=== PATIENT | female | born 1955 | race Caucasian/White ===

== ENCOUNTER → 2016-08-27 | Outpatient (CLI) | payer OTHER ==
[~2016-08-27] MED LIST: GADOBUTROL 10 ML VIAL IVP ONE
--- NOTE | 2016-08-28 10:32 | MR ---
MRI Cervical Spine Without and With Contrast History: History of metastatic breast cancer. Neck pain. Decreased range of motion. Comparison: Bone scan January 2016. MRI August 2012. Technique: MRI was performed of the cervical spine using a 1.5 Chantelle MRI system. Sagittal and axial i maging was obtained with standard imaging sequences. Images were obtained pre- and post intravenous c ontrast, 5 mL Gadavist. Findings: There is heterogeneous bone marrow throughout the cervical and upper thoracic spine indicat ing osseous metastatic disease. Dominant lesion in the C7 vertebral body to the left is more predomin ant. No evidence for compression fracture. Degenerative endplate change is seen at C5-C6 and C6-C7 wi th disk desiccation and disk height narrowing. No significant spondylolisthesis. Cervical spinal cord is normal in size and signal intensity. No evidence for abnormal enhancement of the cervical spine. C2-C3 level demonstrates minimal facet arthropathy causing no significant encroachment. C3-C4 level demonstrates mild facet arthropathy causing no significant encroachment. C4-C5 level demonstrates a mild broad-based annular bulge mildly effacing the anterior thecal sac. Mi ld uncovertebral joint hypertrophy is seen bilaterally. Facet arthropathy is seen bilaterally, more s evere on the right. There is mild to moderate right and mild left neural foraminal narrowing mildly w orsened over the interval. C5-C6 level demonstrates a broad-based annular bulge moderately effacing the anterior thecal sac. Unc overtebral joint hypertrophy and spurring are seen bilaterally causing severe right and moderate to s evere left neural foraminal narrowing progressed over the interval. C6-C7 level demonstrates a broad-based annular bulge mildly effacing the anterior thecal sac. Uncover tebral joint hypertrophy and spurring are seen bilaterally causing mild to moderate bilateral neural foraminal narrowing, left greater than right. There has been mild progression from the prior exam. C7-T1 level demonstrates minimal facet arthropathy causing no significant encroachment. Impression: 1. Multilevel degenerative disk and degenerative joint disease in the cervical spine. There has been mild progression over the interval with more significant levels at C5-C6 and C6-C7. 2. Progression of the osseous metastatic disease.
== END ==
LOC: FIMAGING 19:37
PROVIDERS: ATTEND Internal Medicine Hematology & Oncology
DX: Z85.3 Personal history of malignant neoplasm of breast (principal); M54.2 Cervicalgia; M50.30 Other cervical disc degeneration, unspecified cervical region; C79.51 Secondary malignant neoplasm of bone
CPT/HCPCS: 72156; A9585

== ENCOUNTER → 2016-09-09 | Outpatient (CLI) | payer OTHER ==
--- NOTE | 2016-09-09 17:19 | US ---
Renal Sonography Clinical History: 60-year-old female with a history of metastatic breast cancer and possible right hy dronephrosis. Evaluate the kidneys and collecting systems. ICD 10 Diagnostic Codes: C50.812, C50.919, and N13.30. TECHNIQUE: A curvilinear 5 MHz transducer was used to sonographically evaluate the kidneys and the ur inary bladder. Pre and postvoid imaging of the bladder was performed, and color Doppler was used. COMPARISON STUDY: None currently available. FINDINGS: The right kidney measures 10.9 x 5.8 x 5.1 cm, and there is mild right pelvocaliectasis. Th ere is normal renal cortical thickness, measuring 1.3 cm. There is no focal renal mass, or perinephri c fluid. The left kidney is relatively atrophic, measuring 7.6 x 3.5 x 3.0 cm with a renal cortical t hickness of 6 mm. The urinary bladder has a prevoid volume of 100 cc, and a postvoid residual of 11 c c. Only a right ureteral jet was seen. IMPRESSION: 1. Mild right pelvocaliectasis. A right ureteral jet is seen at the level of the urinary bladder, and the right kidney is otherwise unremarkable. 2. Left renal cortical atrophy, with an absent left ureteral jet at the level of the bladder. 3. Tiny post-void urinary bladder residual.
== END ==
LOC: FIMAGING 13:28
PROVIDERS: ATTEND Internal Medicine Hematology & Oncology
DX: N13.30 Unspecified hydronephrosis (principal); Z85.3 Personal history of malignant neoplasm of breast

== ENCOUNTER → 2016-09-16 | Outpatient (CLI) | payer OTHER ==
[~2016-09-16] MED LIST changes: -GADOBUTROL 10 ML VIAL IVP ONE; +IOPAMIDOL (ISOVUE-300) 100 ML BTL IV ONE
--- NOTE | 2016-09-16 14:23 | CT ---
CT Scan of the Chest (With Contrast) Clinical Indications: Metastatic breast cancer, staging for clinical trial Technique: During machine power injection of 85 mL Isovue 300 intravenously, multidetector helical C T imaging was performed from the superior thoracic inlet to the diaphragm. The radiologist manipulat ed images at the computer workstation. Dose reduction techniques were utilized. Findings: There is no interstitial lung disease, pleural effusion formation, focal consolidation, mas s or pulmonary nodule. There is a single small noncalcified lymph node adjacent to the lower portion of the right inferior pulmonary vein (image 159, series 6) that measures 15 x 9 mm. No other mediasti nal or hilar adenopathy is identified. There is no internal mammary, axillary or supraclavicular willie opathy identified. There are multiple surgical clips in the left axilla. There is dorsal orthopedic f usion hardware in the thoracic region extending into the upper lumbar spine, that supports pathologic ally compressed vertebral bodies T11 and T12. There are also bilateral rib and left scapular tip meta stases present. Heart size is normal without pericardial effusion. There is calcified LAD coronary ar jack disease. Bilateral breast implants are present. Impression: 1. Bony metastases. 2. Solitary right paracardiac node of uncertain clinical significance. If clinically indicated this c ould be evaluated by PET/CT. 2. LAD coronary artery disease. Final results are concordant with the initial interpretation. General information for patients regarding this examination can be found at [email or web address]. If you have questions or comments about this report, please contact me at [phone] (hospital) or [phone] (cell).
--- NOTE | 2016-09-16 15:39 | CT ---
CT Abdomen and Pelvis (Without and With Contrast) CT Urogram 1328 hours History: Metastatic breast cancer. Right-sided hydronephrosis on recent ultrasound study. Atrophic le ft kidney (N 26.1) Technique: Spiral images were obtained through the abdomen and pelvis without contrast for renal ston e evaluation. 85 mL of Isovue-300 IV contrast were administered and spiral images were obtained throu gh the abdomen. After a 12-minute delay, spiral imaging was obtained through the abdomen and pelvis. Images were reconstructed in multiple planes for CT urogram imaging. An AP scanogram superintendent pipelines image was also obtained over the abdomen and pelvis after axial imaging was acquired. Dose reduction techniques were utilized. Findings: On the noncontrast images, there is no evidence of calculus projected over the kidneys or a long the expected path of the ureters. No bladder calculus is seen, as well. With IV contrast administration, the left kidney is small and atrophic positioned in the left upper q uadrant adjacent to the psoas muscle with hypertrophied right kidney. There is mild thinning of the r enal cortex upper pole right kidney medially as well as lower pole right kidney anteriorly that could represent some scarring. There is no evidence of renal mass on either side. There is mild dilatation of the internal collecting structures of the right kidney as well as proximal right ureter just abov e and below a focal kink at the L4 level in the ureter as well as a similar kink in the mid ureter at the L5 level. The mid to distal ureter in the upper pelvis is also mildly prominent in diameter wher e there is an additional narrowing in the mid pelvis that could be related to peristalsis versus cros sing of the ureter over iliac vessels. No definite mass is seen to account for obstruction within the ureter or external to the ureter. The distal right ureter in the lower pelvis is normal in caliber. The left renal pelvis also demonstrates mild dilatation without evidence for focal obstruction. There is intermittent opacification of the left ureter but no evidence for obstruction or mass. No filling defects are seen within the collecting system on either side with normal contour to the renal collec ting structures, as well as the ureters. The bladder has a normal contour. No bladder lesion is seen. Liver: Normal. Spleen: Normal. Gallbladder and Bile Ducts: The common bile duct is mildly prominent at the level of the marco measu ring 8-9 mm in diameter. There is tapering at the level of the pancreatic head. No radiopaque calculu s is visualized. The gallbladder is decompressed.. Pancreas: Normal. Adrenals: Normal. Abdominal Aorta: No aneurysm. Pelvic structures: The uterus has a normal contour. No adnexal masses are seen. Bladder: Normal . Appendix: Normal. Bowel Loops: There is mild underlying constipation involving large bowel. No significantly dilated l oops of bowel are appreciated. No bowel obstruction, ascites, or significant retroperitoneal lymphadenopathy. Skeletal system: Pedicle screws and paraspinal rods are seen extending from the lower thoracic spine to the upper lumbar spine. There is mild compression inferior endplate of T12 and superior endplate of L2 with moderate compression superior endplate of L4 and moderate to marked at L5. Patchy scleroti c lesions are seen associated with visualized lower ribs as well as involving multiple lower thoracic and lumbar spine vertebral body segments, sacrum, and pelvis. Impression: 1. Atrophic left kidney with mild relative hypertrophy suspected of the right kidney. 2. Mild thinning of the cortex upper pole as well as lower pole of the right kidney possibly from pre vious scarring or infectious etiology. 3. Mild dilatation of the collecting system on the right without definitive obstruction. No ureteral or extrinsic mass is seen. There is incidental kinking of the proximal and mid right ureter with foca l relative narrowing distally that could be related to crossing over a vessel or ureteral peristalsis . 4. Mild incidental prominence of the common bile duct at the level of the marco without evidence for radiopaque calculus. 5. Osseous metastatic disease.
== END ==
LOC: FIMAGING 12:49
PROVIDERS: ATTEND Specialist
DX: N13.39 Other hydronephrosis (principal); C50.812 Malignant neoplasm of overlapping sites of left female breast; C79.51 Secondary malignant neoplasm of bone; N26.1 Atrophy of kidney (terminal); I25.10 Atherosclerotic heart disease of native coronary artery without angina pectoris
CPT/HCPCS: 71260; 74178; Q9967

== ENCOUNTER → 2016-09-18 | Outpatient (CLI) | payer OTHER ==
--- NOTE | 2016-09-18 14:17 | NM ---
Nuclear Medicine Whole Body Bone Scan 1222 hours Clinical Indications: Metastatic breast cancer. Check for progression of bone lesions. Establish base line prior to starting new treatment.. Comparison: Prior bone scan study from February 19, 2016. Comparison to prior CT chest abdomen pelvis [facility] of September 16, 2016 as well as MRI cervical spine study from August 27, 2016. Patient also has pr ior PET/CT study from August 14, 2016 from [facility]. Technique: 21.0 mCi of technetium 99m MDP were injected intravenously. Delayed images of the skeleto n were obtained in anterior and posterior projections. Findings: Extensive osseous metastatic disease is once again noted. Foci of interval increased uptake that has progressed since the prior study as follows: Left posterior fifth rib, left posterior T7 transverse process region, left inferior scapula, right p osterior eighth rib, mid to upper sacrum more prominent toward the left side diffusely, and right bernardo tabulum. The degree of uptake associated with multiple additional osseous lesions appear relatively s table. Impression: Extensive diffuse osseous metastatic disease once again identified as detailed above. The re are some focal areas of increased uptake that have progressed since the prior bone scan study.
== END ==
LOC: FIMAGING 08:46
PROVIDERS: ATTEND Internal Medicine Hematology & Oncology
DX: C79.51 Secondary malignant neoplasm of bone (principal); C50.812 Malignant neoplasm of overlapping sites of left female breast
CPT/HCPCS: 78306; A9503

== ENCOUNTER → 2017-06-02 | Outpatient (CLI) | payer OTHER | LOC: FIMAGING 11:05 | PROVIDERS: ATTEND Internal Medicine Hematology & Oncology | DX: C50.812 Malignant neoplasm of overlapping sites of left female breast (principal); C79.51 Secondary malignant neoplasm of bone | CPT/HCPCS: 78306; A9503 ==

== ENCOUNTER → 2017-09-03 | Outpatient (CLI) | payer OTHER | LOC: FIMAGING 08:07 | PROVIDERS: ATTEND Internal Medicine Hematology & Oncology | PROC: CP1Z1ZZ Planar Nuclear Medicine Imaging of Musculoskeletal System, All using Technetium 99m (Tc-99m) (ICD-10-PCS; principal; 2017-09-03) | DX: C79.51 Secondary malignant neoplasm of bone (principal); C50.919 Malignant neoplasm of unspecified site of unspecified female breast | CPT/HCPCS: 78306; A9503 ==

== ENCOUNTER → 2017-11-27 | Outpatient (CLI) | payer OTHER | LOC: FIMAGING 09:17 | PROVIDERS: ATTEND Internal Medicine Hematology & Oncology | PROC: CP1Z1ZZ Planar Nuclear Medicine Imaging of Musculoskeletal System, All using Technetium 99m (Tc-99m) (ICD-10-PCS; principal; 2017-11-27) | DX: C79.51 Secondary malignant neoplasm of bone (principal); C50.812 Malignant neoplasm of overlapping sites of left female breast | CPT/HCPCS: 78306; A9503 ==

== ENCOUNTER → 2017-12-02 | Outpatient (CLI) | payer OTHER | LOC: BMCIMAGING 13:15 | PROVIDERS: ATTEND Family Medicine | DX: M25.531 Pain in right wrist (principal); Z85.3 Personal history of malignant neoplasm of breast ==

== ENCOUNTER 2017-12-11 11:02 | Day surgery (SDC) | payer OTHER ==
[~2017-12-11 11:02] MED LIST changes: -IOPAMIDOL (ISOVUE-300) 100 ML BTL IV ONE; +VANCOMYCIN 750 MG in NS 150 ML IV ONE; +VANCOMYCIN PHARMACY TO DOSE MISC ONE
[2017-12-11] MEDS ORDERED: LIDOCAINE 1% 2 ML INJ ID PRN (11:13)
[2017-12-11] MEDS ORDERED: LR 1,000 ML IV ONE (11:13)
--- NOTE | 2017-12-11 11:25 | PDHPUP ---
History & Physical Update H&P update statement: This history and physical update is based on an assessment of the patient which was completed after admission or registration (within 24 hours), but prior to the surgery/procedure. H&P update: H&P reviewed & patient examined, no change in patient's condition since H&P completed
--- NOTE | 2017-12-11 11:26 | PDHPUP ---
History & Physical Update H&P update statement: This history and physical update is based on an assessment of the patient which was completed after admission or registration (within 24 hours), but prior to the surgery/procedure. H&P update: H&P reviewed & patient examined, changes noted (The pt's oncologist , Dr. Phelps, has cleared her for surgical intervention.)
[2017-12-11] MEDS ORDERED: BUPIVACAINE 0.5% 30 ML SDV ONE (12:38)
--- NOTE | 2017-12-11 13:23 | PDANEPAE ---
ANE History of Present Illness Right distal radius fx orif ANE Past Medical History - Cardiovascular History Hx Hypertension: No Hx Arrhythmias: No Hx Chest Pain: No Hx Coronary Artery / Peripheral Vascular Disease: No Hx CHF / Valvular Disease: No Hx Palpitations: No Cardiovascular History Comment: BP tends to run low 100/60 - Pulmonary History Hx COPD: No Hx Asthma/Reactive Airway Disease: No Hx Recent Upper Respiratory Infection: No Hx Oxygen in Use at Home: No Hx Sleep Apnea: No Sleep Apnea Screening Result - Last Documented: Negative - Neurologic History Hx Cerebrovascular Accident: No Hx Seizures: No Hx Dementia: No - Endocrine History Hx Diabetes: No Hypothyroid: No Hyperthyroid: No - Renal History Hx Renal Disorders: No - Liver History Hx Hepatic Disorders: No - Neurological & Psychiatric Hx Hx Neurological and Psychiatric Disorders: Yes Neurological / Psychiatric 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 - Cancer History Hx Cancer: Yes Cancer History Comment: hip - Congenital Disorder History Hx Congenital Disorders: No - GI History GERD: mild Hx Gastrointestinal Disorders: No - Other Health History Other Health History: none - Chronic Pain History Chronic Pain: Yes (right hip pain,back pain) - Surgical History Prior Surgeries: none ANE Review of Systems Review of Systems: - Exercise capacity METS (RN): 4 METS ANE Patient History - Allergies Allergies/Adverse Reactions: Penicillins Allergy (Unknown, Verified 12/09/17 12:02) Rash HONEYDEW MELON Allergy (Mild, Uncoded 12/09/17 12:02) MOUTH ITCHES - Home Medications Home Medications: TRAMADOL HCL 08/06/11 [Last Taken 12/11/17 04:30] - NPO status NPO Since - Liquids (Date): 12/11/17 NPO Since - Liquids (Time): 05:30 NPO Since - Solids (Date): 12/10/17 NPO Since - Solids (Time): 21:00 - Anes Hx Anes Hx: no prior problems - Smoking Hx Smoking Status: Former smoker - Family Anes Hx Family Hx Anesthesia Complications: none ANE Labs/Vital Signs - Vital Signs Blood Pressure: 108/70 Heart Rate: 61 Respiratory Rate: 16 O2 Sat (%): 98 Height: 156.21 cm Weight: 45.359 kg ANE Physical Exam - Airway Mallampati Score: Class 1 Mouth exam: normal dental/mouth exam - Pulmonary Pulmonary: no respiratory distress - Cardiovascular Cardiovascular: regular rate and rhythym, no murmur, rub, or gallop - ASA Status ASA Status: III ANE Anesthesia Plan Anesthesia Plan: general endotracheal anesthesia Regional Anesthesia: single shot NB (Will discuss with Dr. Pride)
[2017-12-11] MEDS ORDERED: fentaNYL 250 MCG/5 ML INJ ONE (13:32)
[2017-12-11] MEDS ORDERED: PROPOFOL/EMULSION 500 MG/50 ML BOTTLE IV ONE ×2 (13:32)
[2017-12-11] MEDS ORDERED: DEXAMETHASONE 4 MG/ML VIAL ONE (13:41)
[2017-12-11] MEDS ORDERED: ONDANSETRON 4 MG/2 ML VIAL ONE (16:04)
[2017-12-11] MEDS ORDERED: NALOXONE HCL 0.4 MG/ML INJ IVP PRN (16:26)
[2017-12-11] MEDS ORDERED: PROMETHAZINE HCL 25 MG/ML INJ IVP PRN (16:26)
[2017-12-11] MEDS ORDERED: ONDANSETRON 4 MG/2 ML VIAL IVP PRN (16:26)
[2017-12-11] MEDS ORDERED: HYDROmorphONE/DILAUDID 2 MG/ML INJ IVP PRN (16:26)
[2017-12-11] MEDS ORDERED: oxyCODONE IR 5 MG TAB PO PRN (16:26)
[2017-12-11] MEDS ORDERED: HYDROCODONE/APAP 5/325 TAB PO PRN (16:26)
[2017-12-11] MEDS ORDERED: ACETAMINOPHEN 500 MG TAB PO PRN (16:26)
[2017-12-11] MEDS ORDERED: fentaNYL 100 MCG/2 ML INJ ONE (16:43)
[2017-12-11] MEDS: fentaNYL 100 MCG/2 ML INJ IVP PRN ×2 (16:45→17:00)
[2017-12-11] MEDS ORDERED: ROPIVACAINE HCL 150 MG/30 ML INJ ONE ×2 (17:30)
--- NOTE | 2017-12-11 17:57 | POSTANESTH ---
Post Anesthetic Evaluation Cardiovascular Status: Normal, Stable Respiratory Status: Normal, Stable Level of Consciousness/Mental Status: Alert and Oriented Pain Control: Inadeq, Add Tx Required (Pt with significant pain after distal radius ORIF. Discussed R & B of isolated radial nerve block with field block of cutanous lateral antebrachial nerve. Pt agreed to block. Sterile prep of upper arm. U/S guided placement of Pajunk 80 mm 21 G needle to radial nerve about 6 cm above elbow. Slow incremental injection of 2 mL aliquots of 0.5% ropivacaine around nerve for a total of 7 mL. Negative heme with aspiration. Pt did have one transient paresthesia for one needle redirect. No injection and needle immediately withdrawn and replaced with resolution of paresthesia. Field block of antebrachial cutaneous nerve: Sterile prep. 21 G 80 mm Pajunk needle placed subcutaneously with careful injection of 8 mL 0.5% ropivacaine in a line below antecubital crease. VSS. Pt with significant reduction of pain..) Nausea/Vomiting Control: Adequate, Prn Tx Ordered
--- NOTE | 2017-12-11 18:22 | POSTANESTH ---
Post Anesthetic Evaluation Cardiovascular Status: Normal, Stable Respiratory Status: Normal, Stable Level of Consciousness/Mental Status: Can Participate in Eval Pain Control: Adequate, Prn Tx Ordered Nausea/Vomiting Control: Adequate, Prn Tx Ordered Complications Possibly Related to Anesthesia: None Noted (Dr. Valdez did radial nerve block in pacu)
[2017-12-11] MEDS ORDERED: HYDROCODONE/APAP 5/325 TAB ONE (18:24)
[2017-12-11 18:56] VITALS: BP 124/78
--- NOTE | 2017-12-12 15:30 | GOP ---
[f rep st] OPERATIVE REPORT DATE OF OPERATION: 12/11/2017 SURGEON: Michael Pride MD ANESTHESIA: General. PREOPERATIVE DIAGNOSIS: Right intra-articular distal radius fracture in the setting of a prior malunion. POSTOPERATIVE DIAGNOSIS: Right intra-articular distal radius fracture in the setting of a prior malunion. PROCEDURE PERFORMED: Open reduction/internal fixation of right distal radius fracture with 2 articular parts. FINDINGS: ESTIMATED BLOOD LOSS: 5 mL. INDICATIONS: The patient is a 62-year-old female who sustained an injury to her right wrist on December 02; happened in a fall. Patient presented to the Urgent Care that day and was seen by me at Urgent Care that day. X-rays were taken. I discussed the x-rays with the patient and discussed the treatment options. The x-ray showed a severely dorsally angulated distal radius fracture with a fracture of the dorsal lip to the articular surface. The articular component was very small; however, her dorsal angulation was about 45 degrees and is not within acceptable tolerances for closed treatment. The patient does have a history of a distal radius fracture treated with a cast about 5 years ago. I reviewed the old x-rays and reviewed her last x-ray taken, which did show a malunion with dorsal angulation; however, the dorsal angulation was not to the degree as seen today. It is unclear from the x-ray if it is there is a fracture through the malunion; however, this is likely due to the worsening of the dorsal angulation. Furthermore, the articular step-off and large articular fragment are also of some concern for instability dorsally. I discussed with her the options, to include post treatment with a cast versus open reduction/ internal fixation. I discussed with her risks and benefits of each. The patient has a history of stage IV metastatic breast cancer with metastases to bone. She had a prior spine fusion for fracture through metaphysis of the spine and is currently on a hormonal treatment. She has had several bone scans. I reviewed her prior bone scans. In and all the prior bone scan, the radiology interpretation gas not suggested that there has been metastasis to her wrist. The current radiology read suggests that this is a fracture through a sclerotic metastasis. Upon my own review of the image, I believe this is a fracture through a prior malunion rather than a metastasis. However, I do not think this would change the management. The angulation of her wrist fracture is not within acceptable tolerances for normal function, and I believe ORIF will improve quality of life. I discussed this with the patient, and she wished to proceed with surgery. Risks of surgery include pain, bleeding, infection, delayed union, nonunion, damage to surrounding structures, stiffness , numbness, wound healing complications, and need for further surgeries including implant removal. She understood these risks and wished to proceed. DESCRIPTION OF PROCEDURE: The patient was seen in the preoperative holding area and given opportunity to ask questions. All her questions were answered. Consent was confirmed. Surgical site was marked. She was transferred to the operative suite. Of note, I did communicate with her oncologist for clearance for surgery on her current hormonal chemo regimen, and I did receive a response from her oncologist, so we are okay to proceed. In the operative suite, care was taken to transfer the patient from the [facility] to the operating room table. Great care was taken to pad all bony prominences prior to induction of anesthesia. General anesthesia was induced by the anesthesia team. Time-out was called, including surgical and anesthesia teams, confirming the surgical site and procedure to be performed. 1 g of vancomycin was given prior to incision. The right upper extremity was prepped and draped in the usual sterile fashion. Esmarch was used to exsanguinate the right upper extremity, and tourniquet was inflated to 250 mmHg. I made a standard incision for modified volar Aeljandro approach to the distal radius. I dissected down and performed a standard modified Alejandro approach. I visualized the pronator quadratus. Peeled the pronator quadratus off the distal radius. I visualized her malunion site. There was indeed a fracture line through the malunion site, and thus she fractured through her prior malunion. This was a transverse fracture line right at the level of her prior malunion. I placed a [place] into this malunion to try to lever it up. It was not very mobile. I did, however, save a picture showing the level of this fracture. I then placed a small 4.5 K-wire in line with the articular surface to help plan my correction. Then placed a 6 K-wire in line with the prior old fracture line through the malunion. Then, used another 6 K-wire to drill osteoplasty through this fracture in the angle of the prior malunion to help free it up. Then placed several thin osteotomes into the fracture and then levered them up to mobilize the fragment. This mobilized the fracture nicely. Then I chose the [employer] plate, placed the plate over the bone, secured the plate to the distal fragment with K-wires, and then pulled the fragment down to the bone with a cortical screw. Because of the prior malunion , the distal fragment was not very mobile so I had to repeat this process several times by loosening up the cortical shaft screw and then pulling the distal fragment in with compression-type screws in the distal fragment. I also attempted to manipulate the dorsal fragment with another K-wire; however, this fragment was quite small and comminuted, and could not be fully captured. However, without the dorsal fragment, she still had good articular reduction of the articular surface and anglican of volar tilt, with smooth flexion and extension of the wrist without instability. I thin drilled the screws into the distal cluster, and then I placed the locking screws in the shaft, lowering the plate down to the bone. Took final x-rays and confirmed that the screws were out of the joint. There was good anglican of her tilt to about neutral and with good anglican of the height and radial inclination. At this point, the wound was irrigated, and I used a 2-0 Vicryl to repair the distal edge of the pronator quadratus over the edge of the plate to prevent tendon irritation. Then, tourniquet was let down. There was good perfusion of the hand. All bleeding was controlled. The wound was closed in layered fashion with a 4-0 Monocryl. Steri-Strips were applied. Sterile dressing was applied. The patient was placed in a volar slab splint. Of note, prior to closing, I checked her flexion and extension, and she had smooth full flexion and extension. Her DRUJ was stable. After placing her in the splint, she was awakened from general anesthesia in stable condition and taken to PACU in stable condition. IMPLANTS USED: [employer] distal radius plating system. POSTOPERATIVE CONDITION: Stable. POSTOPERATIVE PLAN: The patient will follow up with me in clinic in 10-14 days. She will be followed with serial radiographs to evaluate healing of the fracture. /[id number]/MODL MTDD
--- NOTE | 2017-12-16 16:38 | POSTANESTH ---
Post Anesthetic Evaluation Cardiovascular Status: Normal, Stable Respiratory Status: Normal, Stable Level of Consciousness/Mental Status: Can Participate in Eval Pain Control: Adequate, Prn Tx Ordered Nausea/Vomiting Control: Adequate, Prn Tx Ordered Complications Possibly Related to Anesthesia: None Noted (DC to home)
== END 2017-12-11 19:19 | disposition home or self-care (01) ==
LOC: FSGY 11:02
PROVIDERS: ATTEND Orthopaedic Surgery Hand Surgery
PROC: 0PSH04Z Reposition Right Radius with Internal Fixation Device, Open Approach (ICD-10-PCS; principal; 2017-12-11 12:30)
DX: S52.571A Other intraarticular fracture of lower end of right radius, initial encounter for closed fracture (principal); W19.XXXA Unspecified fall, initial encounter; Z85.3 Personal history of malignant neoplasm of breast; Z85.830 Personal history of malignant neoplasm of bone; Z88.0 Allergy status to penicillin; Z87.891 Personal history of nicotine dependence
CPT/HCPCS: 25608; C1769; C1713; J1100; J2405; J2704; J2795; J3010; J3370

== ENCOUNTER → 2018-01-15 | Outpatient (CLI) | payer OTHER ==
[~2018-01-15] MED LIST changes: +GADOBUTROL 10 ML VIAL IVP ONE; -VANCOMYCIN 750 MG in NS 150 ML IV ONE; -VANCOMYCIN PHARMACY TO DOSE MISC ONE
== END ==
LOC: FIMAGING 13:57
PROVIDERS: ATTEND Internal Medicine Hematology & Oncology
DX: M89.9 Disorder of bone, unspecified (principal); Z85.3 Personal history of malignant neoplasm of breast
CPT/HCPCS: 72197; A9585

== ENCOUNTER → 2018-01-27 | Outpatient (CLI) | payer OTHER | LOC: BMCIMAGING 11:26 | PROVIDERS: ATTEND Orthopaedic Surgery Hand Surgery | DX: S52.571D Other intraarticular fracture of lower end of right radius, subsequent encounter for closed fracture with routine healing (principal) ==

== ENCOUNTER 2018-07-01 16:17 | Emergency (ER) | payer OTHER ==
--- NOTE | 2018-07-01 17:13 | EDPHY ---
H & P Stated Complaint: back pain, n/v Time Seen by Provider: 07/01/18 17:11 HPI/ROS: CHIEF COMPLAINT: Sharp back pain HISTORY OF PRESENT ILLNESS: The patient presents to the ED with complaints of right posterior sharp thoracic back pain. The patient does have a history of metastatic cancer with known bony metastases. The patient the reports her symptoms are moderate to severe in nature and typically are only experienced with movement. She has been taking long-acting morphine without significant improvement of her symptoms. She has also been taking tramadol. The patient does report the symptoms are mildly pleuritic. She denies any asymmetric calf pain or swelling. She is not anticoagulated. The patient denies any complaints of acute headache, numbness or weakness. She denies any complaints of fever or dysuria. REVIEW OF SYSTEMS: A comprehensive 10 point review of systems is otherwise negative aside from elements mentioned in the history of present illness. Source: Patient Exam Limitations: No limitations - Personal History Current Tetanus/Diphtheria Vaccine: Yes Current Tetanus Diphtheria and Acellular Pertussis (TDAP): Yes Tetanus Vaccine Date: - Medical/Surgical History Hx Asthma: No Hx Chronic Respiratory Disease: No Hx Diabetes: No Hx Cardiac Disease: No Hx Renal Disease: No Hx Cirrhosis: No Hx Alcoholism: No Hx HIV/AIDS: No Hx Splenectomy or Spleen Trauma: No Other PMH: Breast CA mets in spine and pelvis, thoracic spine surgery with rods , mastectomy - Social History Smoking Status: Former smoker - Physical Exam Exam: General Appearance: Thin female, no acute distress Eyes: Pupils equal and round no pallor or injection ENT, Mouth: Mucous membranes moist Respiratory: There are no retractions, lungs are clear to auscultation Cardiovascular: Regular rate and rhythm Gastrointestinal: Abdomen is soft and nontender, no masses, bowel sounds normal Neurological: A&O, normal motor function, normal sensory exam, normal cranial nerves Skin: Warm and dry, no rashes, specifically no evidence of shingles Musculoskeletal: Tenderness to palpation noted in the midthoracic spine, no palpable deformity Extremities: symmetrical, full range of motion Psychiatric: Patient is oriented X 3, there is no agitation Constitutional: Initial Vital Signs Temperature (C) 36.8 C 07/01/18 16:31 Heart Rate 72 07/01/18 16:31 Respiratory Rate 16 07/01/18 16:31 Blood Pressure 98/67 L 07/01/18 16:31 O2 Sat (%) 99 07/01/18 16:31 O2 Delivery Mode Room Air Allergies/Adverse Reactions: Penicillins Allergy (Unknown, Verified 07/01/18 16:31) Rash HONEYDEW MELON Allergy (Mild, Uncoded 07/01/18 16:31) MOUTH ITCHES Home Medications: Medication Instructions Recorded TRAMADOL HCL 08/06/11 MORPHINE SULFATE 07/01/18 Medical Decision Making - Diagnostics Imaging Results: Imaging Impressions Chest/Thorax CTA 07/01/18 17:37 Impression: 1. Acute mild T6 inferior endplate compression fracture, presumably pathologic. 2. No PE. Results discussed with Glenn Faith M.D. at 7:55 PM. General information for patients regarding this examination can be found at [email or web address]. If you have questions or comments about this report, please contact me at [phone] (hospital) or [phone] (cell). ED Course/Re-evaluation: Differential diagnosis considered includes pulmonary embolism, compression fracture, pleurisy, worsening metastatic disease, hemothorax, zoster ED course: Given the patient's history of cancer she was taken for a CT scan of the chest which demonstrates no evidence of pulmonary embolism but does demonstrate a mild acute T6 compression fracture which is likely the cause of the patient's symptoms. The patient is noted to be neurologically intact. The patient will be given a prescription for lidocaine patches as well as short-acting OxyContin. The patient has been advised to return to the ED for uncontrolled pain, acute numbness, weakness, chest pain or difficulty breathing. The patient will follow up with her primary care provider and oncologist as scheduled. Differential Diagnosis: Differential diagnosis considered includes compression fracture, aortic dissection, pneumothorax, hemothorax, pulmonary embolism - Data Points Laboratory Results: Laboratory Results 07/01/18 17:29 07/01/18 17:29 07/01/18 07/01/18 07/01/18 17:36 17:29 17:29 WBC RBC Hgb POC Hgb 10.2 gm/dL L gm/dL (12.6-16.3) Hct POC Hct 30 % L % (38-47) MCV MCH MCHC RDW Plt Count MPV Neut % (Auto) Lymph % (Auto) Vermilion % (Auto) Eos % (Auto) Baso % (Auto) Nucleat RBC Rel Count Absolute Neuts (auto) Absolute Lymphs (auto) Absolute Monos (auto) Absolute Eos (auto) Absolute Basos (auto) Absolute Nucleated RBC Immature Gran % Immature Gran # RBC/WBC/PLT Morphology Platelet Estimate PT 12.8 SEC SEC (12.0-15.0) INR 0.94 (0.83-1.16) APTT 27.0 SEC SEC (23.0-38.0) POC Sodium 140 mEq/L mEq/L (135-145) Sodium 137 mEq/L mEq/L (135-145) POC Potassium 4.0 mEq/L mEq/L (3.3-5.0) Potassium 4.3 mEq/L mEq/L (3.3-5.0) POC Chloride 102 mEq/L mEq/L (97-110) Chloride 101 mEq/L mEq/L (97-110) Carbon Dioxide 28 mEq/l mEq/l (22-31) Anion Gap 8 mEq/L mEq/L (6-14) POC BUN 16 mg/dL mg/dL (7-23) BUN 16 mg/dL mg/dL (7-23) Creatinine 0.7 mg/dL mg/dL (0.6-1.0) POC Creatinine 0.8 mg/dL mg/dL (0.6-1.0) Estimated GFR > 60 Glucose 99 mg/dL mg/dL (70-100) POC Glucose 98 mg/dL mg/dL (70-100) Calcium 9.6 mg/dL mg/dL (8.5-10.4) 07/01/18 17:29 WBC 3.41 10^3/uL L 10^3/uL (3.80-9.50) RBC 2.88 10^6/uL L 10^6/uL (4.18-5.33) Hgb 9.6 g/dL L g/dL (12.6-16.3) POC Hgb Hct 30.0 % L % (38.0-47.0) POC Hct MCV 104.2 fL H fL (81.5-99.8) MCH 33.3 pg pg (27.9-34.1) MCHC 32.0 g/dL L g/dL (32.4-36.7) RDW 14.6 % % (11.5-15.2) Plt Count 251 10^3/uL 10^3/uL (150-400) MPV 8.4 fL L fL (8.7-11.7) Neut % (Auto) 86.2 % H % (39.3-74.2) Lymph % (Auto) 7.0 % L % (15.0-45.0) Vermilion % (Auto) 5.9 % % (4.5-13.0) Eos % (Auto) 0.3 % L % (0.6-7.6) Baso % (Auto) 0.3 % % (0.3-1.7) Nucleat RBC Rel Count 0.0 % % (0.0-0.2) Absolute Neuts (auto) 2.94 10^3/uL 10^3/uL (1.70-6.50) Absolute Lymphs (auto) 0.24 10^3/uL L 10^3/uL (1.00-3.00) Absolute Monos (auto) 0.20 10^3/uL L 10^3/uL (0.30-0.80) Absolute Eos (auto) 0.01 10^3/uL L 10^3/uL (0.03-0.40) Absolute Basos (auto) 0.01 10^3/uL L 10^3/uL (0.02-0.10) Absolute Nucleated RBC 0.00 10^3/uL 10^3/uL (0-0.01) Immature Gran % 0.3 % % (0.0-1.1) Immature Gran # 0.01 10^3/uL 10^3/uL (0.00-0.10) RBC/WBC/PLT Morphology TNP Platelet Estimate TNP PT INR APTT POC Sodium Sodium POC Potassium Potassium POC Chloride Chloride Carbon Dioxide Anion Gap POC BUN BUN Creatinine POC Creatinine Estimated GFR Glucose POC Glucose Calcium Point of Care Test Results: Chemistry 07/01/18 17:36 POC Sodium 140 mEq/L mEq/L (135-145) POC Potassium 4.0 mEq/L mEq/L (3.3-5.0) POC Chloride 102 mEq/L mEq/L (97-110) POC BUN 16 mg/dL mg/dL (7-23) POC Creatinine 0.8 mg/dL mg/dL (0.6-1.0) POC Glucose 98 mg/dL mg/dL (70-100) ISTAT H&H 07/01/18 17:36 POC Hgb 10.2 gm/dL L gm/dL (12.6-16.3) POC Hct 30 % L % (38-47) Departure - Departure Disposition: Home, Routine, Self-Care Clinical Impression: Pathological fracture of thoracic vertebra Qualifiers: Encounter type: initial encounter Qualified Code(s): M84.48XA - Pathological fracture, other site, initial encounter for fracture Condition: Good Instructions: Vertebral Compression Fracture (ED) Additional Instructions: 1. Lidocaine patches as prescribed. 2. Oxy IR as needed for severe pain. 3. Return to the ED for uncontrolled pain, chest pain, difficulty breathing or other concerns. 4. Please follow-up with your primary care provider and oncologist as scheduled. Referrals: Tayo Phelps MD [Medical Doctor] - As per Instructions
[2018-07-01 17:50] LABS: PLATELET COUNT 251 10^3/uL (150-400)
[2018-07-01] MEDS ORDERED: IOPAMIDOL (ISOVUE 370) 100 ML BTL IV ONE (17:57)
[2018-07-01 17:59] LABS: INR 0.94 (0.83-1.16); PROTIME(PATIENT) 12.8 SEC (12.0-15.0)
[2018-07-01 19:31] VITALS: BP 96/62
== END 2018-07-01 19:31 | disposition home or self-care (01) ==
DX: M84.48XA Pathological fracture, other site, initial encounter for fracture (principal); Z85.3 Personal history of malignant neoplasm of breast; Z85.830 Personal history of malignant neoplasm of bone
CPT/HCPCS: 71275; 99285; Q9967; 82435-PO; 82565-PO; 82947-PO; 84132-PO; 84295-PO; 84520-PO; 85014-PO

== ENCOUNTER → 2018-07-07 | Outpatient (CLI) | payer OTHER | LOC: FIMAGING 10:11 | PROVIDERS: ATTEND Internal Medicine Hematology & Oncology | DX: M25.551 Pain in right hip (principal); C79.51 Secondary malignant neoplasm of bone; Z85.3 Personal history of malignant neoplasm of breast ==

== ENCOUNTER → 2018-07-21 | Outpatient (CLI) | payer OTHER | LOC: FIMAGING 12:36 | PROVIDERS: ATTEND Internal Medicine Hematology & Oncology | DX: R22.42 Localized swelling, mass and lump, left lower limb (principal); M79.605 Pain in left leg ==

== ENCOUNTER → 2018-07-27 | Outpatient (CLI) | payer OTHER ==
[~2018-07-27] MED LIST changes: -GADOBUTROL 10 ML VIAL IVP ONE; +LIDOCAINE 1% 300 MG/30 ML SDV ONE
[2018-07-27 10:07] LABS: INR 1.01 (0.83-1.16); PROTIME(PATIENT) 13.5 SEC (12.0-15.0)
== END ==
LOC: FIMAGING 09:10
PROVIDERS: ATTEND Internal Medicine Hematology & Oncology
PROC: 0KB Muscles, Excision (ICD-10-PCS; principal; 2018-07-27)
DX: M62.9 Disorder of muscle, unspecified (principal); Z85.3 Personal history of malignant neoplasm of breast

== ENCOUNTER 2018-07-30 11:54 | Inpatient (IN) | payer OTHER ==
[2018-07-30 13:46] LABS: PLATELET COUNT 197 10^3/uL (150-400)
[2018-07-30] MEDS ORDERED: DIAZEPAM 5 MG/ML 1 ML SYR IVP ONE (14:22)
--- NOTE | 2018-07-30 14:37 | EDPHY ---
H & P Stated Complaint: cancer pt ? sepsis/?abcess r groin area Time Seen by Provider: 07/30/18 13:06 HPI/ROS: CHIEF COMPLAINT: Right thigh mass with increasing pain HISTORY OF PRESENT ILLNESS: This is a 62-year-old female with a history of metastatic breast cancer. Her cancer was 1st diagnosed in 2000. She has spinal and pelvic metastases. She has undergone thoracic spine surgery. She presents today for further evaluation and treatment of her right thigh mass. This mass was biopsied 2 days ago in the biopsy showed ischemic, necrotic, and inflamed muscle tissue. She is experiencing worsening pain in the face of tramadol, morphine ER 15 mg twice daily, and hydrocodone 7.5/325 every 4 hr. She is also taking a muscle relaxer as needed. She has a lighted cane patch that she has tried. The pain extends into her leg. She also notices some pain in her hip. In addition she reports back pain, not a new problem for her. She has not had fever. REVIEW OF SYSTEMS: A ten system review of systems was performed and is negative with the exception of the items mentioned in the HPI. Past medical history: 1. Metastatic breast cancer Past surgical history: 1. Mastectomy 2. Thoracic fusion Social history: She lives with her . Blood pressure 97/64. General Appearance: Alert. Vital signs reviewed. Afebrile. Blood pressure 97 /64. Eyes: Pupils equal and round, no conjunctival injection, no discharge. Anicteric. ENT, Mouth: Mucous membranes are slightly dry, no oropharyngeal erythema or edema. Neck: No lymphadenopathy, supple. Respiratory: Lungs are clear to auscultation; no wheezes, rales, or rhonchi. Cardiovascular: Regular rate and rhythm; no murmur, rub, or gallop. Gastrointestinal: Abdomen is soft and nontender, no masses or organomegaly, bowel sounds normal. Skin: Warm and dry, no rashes on exposed skin, normal color. Back: Nontender to palpation over the thoracolumbar spine. No CVAT. Extremities: There is a 6 x 4 cm firm tender area in the upper anterior right thigh, at the inguinal crease. Overlying skin is mildly erythematous. Femoral pulse on the right is 2+. Neurological: Alert and oriented. Moving all four extremities easily and equally. Sensation intact to light touch over both lower extremities. Psychiatric: Normal affect. - Personal History Current Tetanus Diphtheria and Acellular Pertussis (TDAP): Unsure Tetanus Vaccine Date: t-6 - Medical/Surgical History Hx Asthma: No Hx Chronic Respiratory Disease: No Hx Diabetes: No Hx Cardiac Disease: No Hx Renal Disease: No Hx Cirrhosis: No Hx Alcoholism: No Hx HIV/AIDS: No Hx Splenectomy or Spleen Trauma: No Other PMH: Breast CA mets in spine and pelvis, thoracic spine surgery with rods , mastectomy - Social History Smoking Status: Former smoker Constitutional: Initial Vital Signs Temperature (C) 37.4 C 07/30/18 12:11 Heart Rate 96 07/30/18 12:11 Respiratory Rate 18 07/30/18 12:11 Blood Pressure 97/64 L 07/30/18 12:11 O2 Sat (%) 95 07/30/18 12:11 O2 Delivery Mode Nasal Cannula Allergies/Adverse Reactions: Penicillins Allergy (Unknown, Verified 07/30/18 12:09) Rash HONEYDEW MELON Allergy (Mild, Uncoded 07/01/18 16:31) MOUTH ITCHES Home Medications: Medication Instructions Recorded Herbals/Supplements -Info Only 1 ea PO DAILY 07/30/18 Hydrocodone/Acetaminophen 1 tab PO Q4 PRN 07/30/18 [Hydrocodone-Acetamin 7.5-325] Methocarbamol [Methocarbamol] 500 mg PO QID 07/30/18 morphINE SR [Ms Contin/Oramorph 15 15 mg PO BID 07/30/18 mg (*)] Medical Decision Making ED Course/Re-evaluation: Worsening right thigh pain in the region of a right thigh mass that was biopsied and showed ischemic/necrotic/inflamed muscle tissue. I reviewed the ultrasound biopsy report and pathology report. She will be admitted to the hospital for further evaluation and orthopedic consultation. She has been unable to control her pain at home with oral medications. In the emergency department she received morphine 6 mg IV. Labs reviewed. She will be admitted to Dr. Lewis Crum with consultation from Arnold Pride, orthopedist. Differential Diagnosis: Considered a differential diagnosis that includes but is not limited to malignant metastases, cellulitis, abscess, necrotizing fasciitis, vascular insufficiency. - Data Points Laboratory Results: Laboratory Results 07/30/18 13:30 07/30/18 13:30 07/30/18 07/30/18 07/30/18 14:30 13:30 13:30 WBC 3.67 10^3/uL L 10^3/uL (3.80-9.50) RBC 2.84 10^6/uL L 10^6/uL (4.18-5.33) Hgb 9.1 g/dL L g/dL (12.6-16.3) Hct 28.9 % L % (38.0-47.0) MCV 101.8 fL H fL (81.5-99.8) MCH 32.0 pg pg (27.9-34.1) MCHC 31.5 g/dL L g/dL (32.4-36.7) RDW 15.5 % H % (11.5-15.2) Plt Count 197 10^3/uL 10^3/uL (150-400) MPV 9.2 fL fL (8.7-11.7) Neut % (Auto) 93.7 % H % (39.3-74.2) Lymph % (Auto) 4.1 % L % (15.0-45.0) Geary % (Auto) 1.1 % L % (4.5-13.0) Eos % (Auto) 0.5 % L % (0.6-7.6) Baso % (Auto) 0.3 % % (0.3-1.7) Nucleat RBC Rel Count 0.0 % % (0.0-0.2) Absolute Neuts (auto) 3.44 10^3/uL 10^3/uL (1.70-6.50) Absolute Lymphs (auto) 0.15 10^3/uL L 10^3/uL (1.00-3.00) Absolute Monos (auto) 0.04 10^3/uL L 10^3/uL (0.30-0.80) Absolute Eos (auto) 0.02 10^3/uL L 10^3/uL (0.03-0.40) Absolute Basos (auto) 0.01 10^3/uL L 10^3/uL (0.02-0.10) Absolute Nucleated RBC 0.00 10^3/uL 10^3/uL (0-0.01) Immature Gran % 0.3 % % (0.0-1.1) Immature Gran # 0.01 10^3/uL 10^3/uL (0.00-0.10) RBC/WBC/PLT Morphology TNP Platelet Estimate TNP VBG Lactic Acid 1.2 mmol/L mmol/L (0.7-2.1) Sodium 138 mEq/L mEq/L (135-145) Potassium 4.4 mEq/L mEq/L (3.5-5.2) Chloride 101 mEq/L mEq/L (97-110) Carbon Dioxide 29 mEq/l mEq/l (22-31) Anion Gap 8 mEq/L mEq/L (6-14) BUN 14 mg/dL mg/dL (7-23) Creatinine 0.6 mg/dL mg/dL (0.6-1.0) Estimated GFR > 60 Glucose 92 mg/dL mg/dL (70-100) Calcium 9.0 mg/dL mg/dL (8.5-10.4) Medications Given: Hydromorphone HCl (Dilaudid) 0.2 - 0.4 mg IVP Q4HRS PRN PRN Reason: Pain, Severe Unable to Take PO Stop: 08/09/18 15:41 Last Admin: 07/30/18 15:57 Dose: 0.2 mg Discontinued Medications Diazepam (Valium) 5 mg IVP EDNOW ONE Stop: 07/30/18 14:23 Last Admin: 07/30/18 14:24 Dose: 5 mg Morphine Sulfate (Morphine) 6 mg IVP EDNOW ONE Stop: 07/30/18 13:28 Last Admin: 07/30/18 13:45 Dose: 6 mg Departure - Departure Disposition: [facility] Inpatient Acute Clinical Impression: Intractable pain, Mass of right thigh Condition: Fair
[2018-07-30] MEDS ORDERED: HYDROCODONE PO PRN (15:42)
[2018-07-30] MEDS ORDERED: HYDROmorphONE/DILAUDID 1 MG/ML INJ IVP PRN (15:42)
[2018-07-30] MEDS ORDERED: ACETAMINOPHEN 325 MG TAB PO PRN (15:42)
[2018-07-30] MEDS ORDERED: HYDROmorphONE/DILAUDID 2 MG TAB PO PRN (15:42)
[2018-07-30] MEDS ORDERED: ACETAMINOPHEN PO PRN (15:42)
[2018-07-30] MEDS ORDERED: ONDANSETRON DISINTEGRATING 4 MG TAB PO PRN (15:42)
[2018-07-30] MEDS ORDERED: ONDANSETRON 4 MG/2 ML VIAL IVP PRN (15:42)
[2018-07-30] MEDS ORDERED: LIDOCAINE 4%/MENTHOL 1% PATCH TD SCH (15:45)
--- NOTE | 2018-07-30 16:23 | GHP ---
DATE OF ADMISSION: 07/30/2018 HISTORY OF PRESENT ILLNESS: The patient is a pleasant 62-year-old female with a history of metastati c breast cancer, with spine hardware for such. She had a thigh mass in her leg for the last few week s. It was biopsied by Dr. Mcallister last week under ultrasound guidance. Three good samples revealed i schemic necrotic muscle. I have reviewed the films with Dr. Mcallister and Dr. Schneider, and it does a ppear that this mass is in fact just muscle. She has not had fevers or chills. She has been able to walk. She has not had a fall. She was seen recently to evaluate for blood clots, and none were found on that side as she has resulting edema. S he denies a history of trauma to that area. Regarding her breast cancer, it was diagnosed in 2000. She has spinal and pelvic metastases with spi nal hardware placed in 2011. She takes chronic pain medicines, and these have been not working. She has also tried a lidocaine patch. The patient received Gemzar chemotherapy this week. ALLERGIES: Penicillins and honeydew. HOME MEDICATIONS: Methocarbamol, hydrocodone/acetaminophen, MS Contin 15 b.i.d. REVIEW OF SYSTEMS: Complete 10-point review of systems conducted, negative, except as noted in the H PI. PAST MEDICAL HISTORY: Metastatic breast cancer, mastectomy, thoracic fusion, thigh mass. SOCIAL HISTORY: She lives with her . No alcohol. No tobacco. FAMILY HISTORY: Reviewed and unremarkable. PHYSICAL EXAMINATION: VITAL SIGNS: Temp 37.4, blood pressure 97/64, pulse 96, breathing 18 times a minute, 95% on room air. GENERAL: No acute distress. HEENT: Sclerae anicteric. Oropharynx clear. Mucous membranes are moist. NECK: Supple, without lymphadenopathy or JVD. LUNGS: Clear to auscu ltation bilaterally. HEART: S1, S2. ABDOMEN: Soft, nontender, nondistended. EXTREMITIES: Her ri ght lower extremity, in her proximal medial thigh, it is firm. There is no overlying warmth or eryth luisa. It is tender to palpation. Her right lower extremity has 2+ edema. Dorsalis pedis pulse is 2+ through a sock. Her left lower extremity is unremarkable. NEUROLOGIC: Exam is nonfocal. LABS: White count 3.7, hematocrit 28.9, MCV elevated at 101.8. Platelets are 197,000. Lactate is 1. 2. Sodium 138, potassium 4.4, chloride 101, bicarb 29, BUN 14, creatinine 0.6, glucose 92. ASSESSMENT/PLAN: A 62-year-old female with metastatic breast cancer, here with thigh mass. 1. Thigh mass. In reviewing the CT with Radiology, it does appear that this is muscle itself as opp osed to a mass. Good pathology specimens obtained under ultrasound guidance were notable for ischemi c muscle. With regard to that, I will check blood cultures and echocardiogram to look for a source o f embolism. She is not systemically unwell, suggesting sepsis or bacteremia; however, her recent cony motherapy is noted. This is not a distal event, and she has good pulses. I do not suspect that this is due to vascular compromise. I wonder if there is not some trauma involved. We can revisit this history. Dr. Michael Pride, orthopedist she has seen in the past, has been consulted from the ER. 2. Right lower extremity edema. Negative for clot. 3. Breast cancer. Management per Oncology. 4. Pain. Will continue her chronic pain medicines. I have added p.o. and IV Dilaudid, as well as a lidocaine patch. 5. Prophylaxis, low molecular weight heparin. DISPOSITION: Inpatient status. /[id number]/MODL
[2018-07-30] MEDS: METHOCARBAMOL 500 MG TAB PO SCH ×2 (17:06→20:16)
--- NOTE | 2018-07-30 18:02 | ECHO ---
[email or web address] [address] [address] Main: [phone] Fax: [email or web address] Echocardiogram Name: WILLY RUYB MR#: [id number] Study Date: 07/30/2018 Study Time: 04:03 PM Date of : 1955 Age: 62 year(s) Height: 157.5 cm (62 in.) Weight: 46.27 kg (102 lb.) BSA: 1.44 m2 Gender: Female Examination: Echo Indication: ischemic thigh mass ? embolism Image Quality: Adequate Contrast: Requested by: Leon Crum BP: / Heart Rate: Rhythm: Indication: ischemic thigh mass ? embolism Procedure Staff [facility] Former: [facility] Reading Physician: Jef Wheatley MD Requesting Provider: Conclusions: Normal size left ventricle. No LV hypertrophy. Normal global systolic LV function. EF is 60 %. Normal diastolic LV function. The mitral valve is normal in appearance and function. Trivial mitral valve regurgitation. The aortic valve is tri-leaflet. Aortic sclerosis is present. There is no significant aortic valve regurgitation. The tricuspid valve is normal in appearance and function. Trivial tricuspid valve regurgitation. There is no pulmonic regurgitation seen. Normal size ascending aorta measuring 2.8 cm. Trivial pericardial effusion. Measurements: Chambers Valvular Assessment AV/MV Valvular Assessment TV/PV Normal Normal Normal Name Value Range Name Value Range Name Value Range Ao Donna (2D): 2.9 cm (1.4 cm-2.6 AV Vmax: 1.12 m/s (1 m/s-1.7 TR Vmax: 1.74 mm/s ( - ) cm) m/s) TR PGmax: 12 mmHg ( - ) IVSd (2D): 0.6 cm (0.6 cm-1.1 AV maxP mmHg ( - ) syst. PAP: 17 mmHg ( - ) cm) AV meanP mmHg ( - ) PV Vmax: 0.84 m/s (0.6 m/s-0.9 LVDd (2D): 4.2 cm (3.9 cm-5.3 LVOT Vmax: 1.00 m/s (0.7 m/s-1.1 m/s) cm) m/s) PV PGmax: 3 mmHg ( - ) LVDs (2D): 2.6 cm (2.1 cm-4 FREDERIC (Vmax): 2.0 cm2 ( - ) cm) FREDERIC (VTI): 2.2 cm ( - ) LVPWd (2D): 0.9 cm ( - ) MV E Vmax: 1.06 m/s ( - ) LVOTd 1.7 cm 1.7 cm mm MV A Vmax: 0.76 m/s ( - ) Patient: WILLY RUBY Study Date: 07/30/2018 Page 1 of 2 04:03 PM LVEF (BP): 60 % (>=55 %) MV E/A: 1.39 ( - ) RVDd(2D): 2.5 cm (1.9 cm-3.8 MV PHT: 0.055 s ( - ) cmmm) MVA (PHT): 4.0 s ( - ) Continued Measurements: Chambers Valvular Assessment AV/MV Valvular Assessment TV/PV Name Value Name Value Name Value LADs: 3.2 cm MV DecTime: 190 m/s CVP (est.): 5 mmHg LADs Lon.2 cm MV E/E' Septal: 8.50 LA Area: 16.8 cm2 MV E/E' Lateral: 7.10 LA Volume: 44 ml LA Volume Index: 30.6 ml/m2 RA Area: 14.4 cm2 Additional Vessels Name Value Ao Ascendin.8 cm Inferior Vena Cava: 1.6 cm Findings: Left Ventricle: Normal size left ventricle. No LV hypertrophy. Normal global systolic LV function. EF is 60 %. Normal diastolic LV function. Right Ventricle: Normal size right ventricle. Normal RV function. Left Atrium: The left atrium is normal in size. Right Atrium: The right atrium is normal in size. Mitral Valve: The mitral valve is normal in appearance and function. Trivial mitral valve regurgitation. No mitral stenosis is present. Possible subtle/trivial mitral valve prolapse. Aortic Valve: The aortic valve is tri-leaflet. Aortic sclerosis is present. There is no significant aortic valve regurgitation. No aortic valve stenosis is present. Tricuspid Valve: The tricuspid valve is normal in appearance and function. Trivial tricuspid valve regurgitation. The pulmonary artery pressure is normal. Right ventricular systolic pressure measures 17mmHg. Pulmonic Valve: The pulmonic valve is normal in appearance and function. There is no pulmonic regurgitation seen. Aorta: The aorta is normal. Normal size aortic root measuring 2.9 cm. Normal size ascending aorta measuring 2.8 cm. IVC: The IVC is normal sized. Pericardium: Trivial pericardial effusion. No pleural effusion. (No Signature Object) Patient: WILLY RUBY Study Date: 07/30/2018 Page 2 of 2 04:03 PM [id number]
[2018-07-30] MEDS: HYDROmorphONE/DILAUDID 1 MG/ML INJ IVP PRN ×3 (18:50→23:13)
[2018-07-30] MEDS: morphINE SR 15 MG TAB PO SCH (20:16)
[2018-07-30] MEDS: ACETAMINOPHEN PO PRN (21:12)
[2018-07-30] MEDS: HYDROCODONE PO PRN (21:12)
[2018-07-31] MEDS: HYDROmorphONE/DILAUDID 1 MG/ML INJ IVP PRN ×6 (01:19→21:00)
[2018-07-31] MEDS: ACETAMINOPHEN PO PRN ×2 (04:48→11:32)
[2018-07-31] MEDS: HYDROCODONE PO PRN ×2 (04:48→11:32)
[2018-07-31] MEDS: METHOCARBAMOL 500 MG TAB PO SCH ×4 (05:41→19:48)
[2018-07-31] MEDS: LIDOCAINE 4%/MENTHOL 1% PATCH TD SCH ×2 (05:42→17:55)
[2018-07-31] MEDS: PATCH REMOVAL 1 EA PATCH TD SCH ×2 (05:42→17:56)
[2018-07-31] MEDS ORDERED: PATCH REMOVAL 1 EA PATCH TD SCH (06:00)
[2018-07-31] MEDS ORDERED: Herbals/Supplements -Info Only PO SCH (09:00)
[2018-07-31 09:51] LABS: PLATELET COUNT 179 10^3/uL (150-400)
--- NOTE | 2018-07-31 09:55 | PDMN ---
Medical Necessity Medical necessity: MCG PGPM Pain Management: 62 yo w/ hx metastatic breast ca presents w/ thigh mass and pain management. U/S guided bx taken last week which revealed ischemic, necrotic muscle. BC pending. Pt requiring frequent IV opioid for pain management q2hr admin noted. Admit to IP status. Hx breast ca mets to spine and pelvis w/ spinal hardware placed 2011, actively on chemo (Gemzar) which she received this week.
--- NOTE | 2018-07-31 09:56 | ASMTCMCOM ---
CM Note CM Note Notes: Chart reviewed for discharge planning purposes, 62 year old female with history of breast cancer with metastatic disease to her spine admitted via ED for complaints of worsening pain associated with a thigh mass which per biopsy results has necrotic tissue. Normally lives independently with her . CM to follow for needs. Plan: TBD Date Signed: 07/31/2018 09:55 AM Electronically Signed By:Teagan Black RN
[2018-07-31] MEDS: ENOXAPARIN 40 MG/0.4 ML SYR SC SCH (10:01)
[2018-07-31] MEDS: morphINE SR 15 MG TAB PO SCH ×2 (10:01→19:48)
[2018-07-31 10:14] LABS: CREATINE KINASE 141 IU/L (0-156)
[2018-07-31 10:21] LABS: INR 1.11 (0.83-1.16); PROTIME(PATIENT) 14.5 SEC (12.0-15.0)
--- NOTE | 2018-07-31 10:41 | PDCONSULT ---
[facility] Location Manager Note: Patient is a 62-year-old female with metastatic ER [place] positive HER-2 negative breast cancer who presents with right-sided thigh mass subsequently found on biopsy to be ischemic skeletal muscle. As mentioned patient has a history of metastatic ER [place] positive HER-2 negative breast cancer. She was initially diagnosed with localized breast cancer August 03, 2002. She was also found to have metastatic disease June 03, 2011 during a spine stabilization for T11 metastasis. She was shortly thereafter started on Zometa and Arimidex. After failure of Arimidex she was placed on Faslodex on March 17, 2012. Upon progression she was placed on Xeloda followed by Faslodex and Ibrance. Most recently she has been on on gemcitabine - Day 1 of cycle 6 was 07/21/2018. Patient reports that for roughly 2 weeks she has had pain and tenderness in the right upper lateral thigh. This was initially felt to represent mass was subsequently biopsied on 07/27/2018. Biopsy results came back with ischemic probably necrotic and inflamed skeletal muscle. Patient was then sensitive admitted for management. Outside of pain patient does not have any other systemic symptoms. She has no history of right eye or hematuria. She is a non- smoker.She denies any new medications. Past medical history: No history of rheumatologic disorder Metastatic breast cancer as above Past surgical history: Mastectomy Spinal fusion Social history: Patient is without any history of alcohol drugs or tobacco Family history: No family history of malignancy Review of systems: A complete 12 point review of systems was obtained and found to be negative unless indicated in the history of the present illness Physical Examination General: mild distress, non toxic HEENT: pupils are equal round and reactive to light, no icterus or pallor, oral mucosa is moist without lesions Neck: supple Cardiovascular: Regular in rate and rhythm without rubs thrills or gallops Abdomen: soft nontender, non distended, no HSM Extremities: erythema/induration and warmth of skin overlying right anteriolateral thigh, well demarcated, painful to the touch, palpable femoral and popliteal pulses Neurologic: alert and oriented x3 Lymph: no palpable lymph adenopathy Assessment and Plan: Patient is a 62-year-old female with history of metastatic breast cancer currently on gemcitabine with a 2-week history of redness warmth pain and induration of the right anterior lateral thigh subciliary found to have ischemic /necrotic skeletal muscle on biopsy. Problem #1 ischemic myopathy Uncertain at this juncture the raleigh of the patient's ischemic skeletal muscle is and the best course of action for this. Certainly there are case reports of gemcitabine causing not only thrombotic microangiopathy but also digital ulceration and ischemia. There is also been case reports of gemcitabine -induced myopathy and myositis.With that said apart from the possibility of first manifestation of a systemic vasculitis, seems more likely this is gemcitabine related and this medication will need to be stopped. Agree with evaluation by Ortho surgery or vascular surgery to determine what is the next step for management of this large area of necrosis. In the meantime I will look for the development of antiphospholipid antibodies as well as perhaps a contribution of DIC to this event. There is no evidence of hemolysis kidney dysfunction or thrombocytopenia to suggest a microangiopathic process.
[2018-07-31] MEDS ORDERED: NALOXONE HCL 0.4 MG/ML INJ IVP PRN (11:55)
[2018-07-31] MEDS ORDERED: LACTULOSE 20 GM/30 ML UDCUP PO PRN (11:56)
[2018-07-31] MEDS ORDERED: MAGNESIUM HYDROXIDE 30 ML UDCUP PO PRN (11:56)
[2018-07-31] MEDS ORDERED: POLYETHYLENE GLYCOL 3350 17 GM PKT PO PRN (11:56)
[2018-07-31] MEDS ORDERED: BISACODYL 10 MG SUPP PR PRN (11:56)
[2018-07-31] MEDS: HYDROmorphONE/DILAUDID 6 MG/30 ML PCA IV PRN (12:14)
[2018-07-31] MEDS ORDERED: HYDROmorphONE/DILAUDID 1 MG/ML INJ IVP ONE (12:55)
[2018-07-31] MEDS ORDERED: SUCRALFATE/DIPHENHYDR/MAALOX 240 ML BOTTLE PO PRN (12:55)
[2018-07-31] MEDS ORDERED: LORazepam 0.5 MG TAB PO PRN (12:58)
--- NOTE | 2018-07-31 13:27 | ASMTCMCOM ---
CM Note CM Note Notes: Patient plan of care reviewed in rounds. 62 year old female admitted via ED for c/o pain in thigh.Patient has necrotic mass in her thigh area. Pain is main problem today. Surgery to consult. Oncologist also following. CM to follow for needs. Plan: TBD Date Signed: 07/31/2018 01:26 PM Electronically Signed By:Teagan Black RN
--- NOTE | 2018-07-31 13:37 | HOSPPROG ---
Hospitalist Progress Note Assessment/Plan: 1. 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 Metastatic Br Ca -discussed with Dr Sharif 3. Stomach pain -GI cocktail, PPI FULL CODE DVT prophy- lovenox (on hold today for possible surgery) PCP Dr Jain DISPO- > 2 mdnts because of severity of pain/BAILING MACHINE OPERATOR, ongoing evaluation of leg mass /possible surgery Subjective: crying in pain during rounds, family/friends in the room. Also has a sensation of cinching belt around her upper abdomen. No SOB/CP/v/d. Objective: Vital Signs Temp Pulse Resp BP Pulse Ox 97.8 F 87 16 94/54 L 99 07/31/18 13:19 07/31/18 13:19 07/31/18 13:19 07/31/18 08:05 07/31/18 13:19 Laboratory Results 07/31/18 10:00 07/30/18 07/31/18 08/01/18 11:59 11:59 11:59 Intake Total 1227 Balance 1227 PT 14.5 SEC (12.0-15.0) 07/31/18 09:39 INR 1.11 (0.83-1.16) 07/31/18 09:39 - Time Spent With Patient Time Spent with Patient: greater than 35 minutes Time Spent with Patient: Greater than 35 minutes spent on this patients care, greater than 50% of time spent counseling, educating, and coordinating care regarding the above mentioned plan. - Pending Discharge Pending Discharge Within 48 Hours: No - Physical Exam Constitutional: uncomfortable (crying intermittently), other (thin) Eyes: anicteric sclera, EOMI Ears, Nose, Mouth, Throat: moist mucous membranes, hearing normal Cardiovascular: no murmur, rub, or gallop, tachycardia Respiratory: no respiratory distress, no rales or rhonchi, clear to auscultation , other (no pain with rib compression) Gastrointestinal: normoactive bowel sounds, other (mild ttp mid eigastrum), No ascites, No guarding, No rebound, No distension Skin: warm, normal color Musculoskeletal: other (palpable mass in R ant thigh, noted soft tissue swelling in upper thigh) Psychiatric: interacting appropriately, not anxious, not encephalopathic, thought process linear ICD10 Worksheet Patient Problems: Problems Problem Status Onset Intractable pain Acute Mass of right thigh Acute
[2018-07-31] MEDS ORDERED: LIDOCAINE 2% VISCOUS 15 ML UDCUP PO PRN (14:12)
[2018-07-31] MEDS ORDERED: HYOSCYAMINE SULFATE 0.125 MG TAB PO PRN (14:30)
[2018-07-31] MEDS ORDERED: HYOSCYAMINE SULFATE 0.125 MG TAB PO ONE (14:30)
[2018-07-31] MEDS ORDERED: MAG HYDROX/AL HYDROX/SIMETH 30 ML UDCUP PO ONE (14:30)
[2018-07-31] MEDS ORDERED: MAG HYDROX/AL HYDROX/SIMETH 30 ML UDCUP PO PRN (14:30)
[2018-07-31] MEDS: PANTOPRAZOLE SODIUM 40 MG VIAL IVP SCH (15:21)
[2018-07-31] MEDS ORDERED: D5W 1/2 NS 1,000 ML IV SCH (18:00)
[2018-07-31] MEDS ORDERED: LIDOCAINE 4%/MENTHOL 1% PATCH TD SCH ×2 (18:00)
[2018-07-31] MEDS ORDERED: ACETAMINOPHEN 325 MG TAB PO SCH (18:00)
[2018-07-31] MEDS: ACETAMINOPHEN 500 MG TAB PO SCH (18:20)
--- NOTE | 2018-07-31 19:24 | GCON ---
REASON FOR CONSULTATION: Painful right leg mass. HISTORY: The patient is a 62-year-old female who has metastatic breast cancer. In the last several weeks, she has developed a mass in her right anterior thigh just below the inguinal ligament. The ma ss is in the right rectus femoris muscle. It measures approximately 4 x 4 x 2.3 cm. It has previous ly been biopsied percutaneously and result shows only necrotic muscle. This is quite tender for her and it is unclear as to the pathology as well as the etiology. Her pain is now controlled. An MRA w ill be performed to help further clarify the process. Based on that, a discussion will be held on morning with the patient, Dr. Carranza, myself, and perhaps her oncologist. Decision will be made as to whether to explore and decompress or excise the mass. The patient understands this may lead t o some decrement in her muscle function, but she states that it is so painful at this point that that probably will not be a problem for her. At this point, she has an elevated MCV from her chemotherapy, but her white count is 3.6. Her hemato crit is 38. Her platelet count is 179. Her INR is 1.11, although she is on Lovenox. Her lactate is 1.2. Her CK is 141. Sodium is 138, potassium is 4.4, creatinine 0.6. She appears to be an appropr iate candidate for surgical intervention. She will be made n.p.o. tonight and further hydrated. /[id number]/MODL
[2018-07-31] MEDS: SENNOSIDES/DOCUSATE SODIUM TAB PO SCH (19:48)
[2018-07-31] MEDS ORDERED: GADOBUTROL 10 ML VIAL IVP ONE (20:09)
[2018-08-01] MEDS: ACETAMINOPHEN 500 MG TAB PO SCH ×3 (01:01→18:19)
[2018-08-01] MEDS: HYDROmorphONE/DILAUDID 6 MG/30 ML PCA IV PRN ×2 (05:55→20:08)
[2018-08-01] MEDS: METHOCARBAMOL 500 MG TAB PO SCH ×4 (05:55→19:58)
[2018-08-01] MEDS: LIDOCAINE 4%/MENTHOL 1% PATCH TD SCH ×2 (05:56→19:58)
[2018-08-01] MEDS: PATCH REMOVAL 1 EA PATCH TD SCH ×2 (06:07→18:20)
[2018-08-01] MEDS: morphINE SR 15 MG TAB PO SCH ×2 (08:48→19:58)
[2018-08-01] MEDS: PANTOPRAZOLE SODIUM 40 MG VIAL IVP SCH (08:48)
[2018-08-01] MEDS: SENNOSIDES/DOCUSATE SODIUM TAB PO SCH ×2 (08:48→19:58)
[2018-08-01] MEDS ORDERED: KETOROLAC 30 MG/1 ML SDV IVP PRN (10:48)
--- NOTE | 2018-08-01 10:53 | SOAPPROG ---
SOKRISTEN Progress Note Assessment/Plan: Assessment and Plan: Patient is a 62-year-old female with history of metastatic breast cancer currently on gemcitabine with a 2-week history of redness warmth pain and induration of the right anterior lateral thigh subciliary found to have ischemic /necrotic skeletal muscle on biopsy. Problem #1 ischemic myopathy Uncertain at this juncture the raleigh of the patient's ischemic skeletal muscle is and the best course of action for this. Certainly there are case reports of gemcitabine causing not only thrombotic microangiopathy but also digital ulceration and ischemia. There has also been case reports of gemcitabine-induced myopathy and myositis. With that said apart from the possibility of first manifestation of a systemic vasculitis, seems more likely this is gemcitabine related and this medication will need to be stopped. In the meantime I will look for the development of antiphospholipid antibodies. No evidence of DIC. No hematuria to suggest systemic vasculitis. CK is normal interestingly and U/A without hemoglobinuria perhaps suggesting this process has ran its course and we are dealing with inflammatory response at this point. We discussed the patient as multidisciplinary team and feel that supportive measures is likely the best course of action given unknown benefit to a surgical procedure and real consequences of surgery such a wound healing - which may be challenging with edema and malnutrition. We will attempt pain control with steroids and narcotics given previous improvement in symptoms with prednisone. I spent 30 mins with the patient with >50% in counseling or coordination of care. 08/01/18 10:50 08/01/18 10:55 08/01/18 10:58 Subjective: Patient had a lot of pain yesterday. Had an MRI and required IV pain medications. 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 She has used 9mg in the last 24 hours. NO systemic symptoms reported. Objective: Vital Signs Temp Pulse Resp BP Pulse Ox 36.8 C 96 16 97/55 L 95 08/01/18 07:41 08/01/18 07:41 08/01/18 07:41 08/01/18 07:41 08/01/18 07:41 Laboratory Results 08/01/18 04:06 08/01/18 04:06 07/31/18 08/01/18 08/02/18 05:59 05:59 05:59 Intake Total 1227 630 Output Total 500 Balance 1227 130 PT 14.5 SEC (12.0-15.0) 07/31/18 09:39 INR 1.11 (0.83-1.16) 07/31/18 09:39 Physical Examination General: mild distress, non toxic HEENT: pupils are equal round and reactive to light, no icterus or pallor, oral mucosa is moist without lesions Neck: supple Cardiovascular: Regular in rate and rhythm without rubs thrills or gallops Abdomen: soft nontender, non distended, no HSM Extremities: erythema/induration and warmth of skin overlying right anteriolateral thigh, well demarcated, painful to the touch, palpable femoral and popliteal and dp pulses. LE edema over left leg Neurologic: alert and oriented x3 Lymph: no palpable lymph adenopathy ICD10 Worksheet Patient Problems: Problems Problem Status Onset Intractable pain Acute Mass of right thigh Acute
[2018-08-01] MEDS: ENOXAPARIN 40 MG/0.4 ML SYR SC SCH (12:10)
[2018-08-01] MEDS: MAGNESIUM HYDROXIDE 30 ML UDCUP PO SCH (12:10)
--- NOTE | 2018-08-01 12:20 | SOAPPROG ---
ADAM Progress Note Assessment/Plan: 08/01/18 12:18 Assessment: As per discussion with all involved physicians etiology remains unclear. As pain is now much less of an issue, we are all agreed to pursue a non operative approach Objective: Vital Signs Temp Pulse Resp BP Pulse Ox 36.8 C 74 16 96/53 L 96 08/01/18 12:00 08/01/18 12:00 08/01/18 12:00 08/01/18 12:00 08/01/18 12:00 Laboratory Results 08/01/18 04:06 08/01/18 04:06 07/31/18 08/01/18 08/02/18 05:59 05:59 05:59 Intake Total 1227 630 Output Total 500 Balance 1227 130 PT 14.5 SEC (12.0-15.0) 07/31/18 09:39 INR 1.11 (0.83-1.16) 07/31/18 09:39 - Time Spent With Patient Time Spent With Patient: 15 ICD10 Worksheet Patient Problems: Problems Problem Status Onset Intractable pain Acute Mass of right thigh Acute
--- NOTE | 2018-08-01 15:45 | HOSPPROG ---
Hospitalist Progress Note Assessment/Plan: 1. Painful R thigh mass -necrotic on biopsy -MR revwd by Soha Zamora and Chante, pending final radiology report -add toradol IV for a few days (vs po steroid, which pt prefers to not use at this time bc of swelling), reassess DIGITAL COLOR PRESS OPERATOR use in AM and try to adjust PO meds -unclear etiology, but Noah Khoury and I are in agreement that goal for care is pain relief and discharge, high risk to surgery for poor wound healing/infection in setting of metastatic disease -her and family in agreement -will work with PT, suggest TEDS and spanx to help with edema in leg -can reconsider surgery or other options if unable to manage pain with oral medications -consider palliative consult if pain control not achievable with oral meds 2. Metastatic Br Ca (diffuse metastases to bones) -revwd care plan extensively with Dr Sharif (and Dr Zamora) 3. Stomach pain -GI cocktail, PPI -improved today, taking PPO well 4. Anemia -hgb dropped < 8 today -will discuss transfusion with her (chronically anemic but this is lower than baseline for her) -no indication of acute bleeding at this time FULL CODE DVT prophy- lovenox (on hold today for possible surgery) PCP Dr Jain DISPO- > 2 mdnts because of severity of pain/DIGITAL COLOR PRESS OPERATOR, ongoing evaluation of leg mass /possible surgery if unable to tolerate pain or if pain worsens/changes Subjective: Much more comfortable today with DIGITAL COLOR PRESS OPERATOR. Denies n/v/d/CP/stomach pain. Family in room. Dr Sharif, Dr Zamora and myself went into room together to review care plan suggestions. Objective: Vital Signs Temp Pulse Resp BP Pulse Ox 98.3 F 74 16 96/53 L 96 08/01/18 12:00 08/01/18 12:00 08/01/18 12:00 08/01/18 12:00 08/01/18 12:00 Laboratory Results 08/01/18 04:06 08/01/18 04:06 07/31/18 08/01/18 08/02/18 11:59 11:59 11:59 Intake Total 1227 630 Output Total 500 Balance 1227 130 PT 14.5 SEC (12.0-15.0) 07/31/18 09:39 INR 1.11 (0.83-1.16) 07/31/18 09:39 - Time Spent With Patient Time Spent with Patient: greater than 35 minutes Time Spent with Patient: Greater than 35 minutes spent on this patients care, greater than 50% of time spent counseling, educating, and coordinating care regarding the above mentioned plan. - Pending Discharge Pending Discharge Within 48 Hours: No - Physical Exam Constitutional: no apparent distress, other (thin) Eyes: anicteric sclera, EOMI Ears, Nose, Mouth, Throat: moist mucous membranes, hearing normal Cardiovascular: regular rate and rhythym, no murmur, rub, or gallop Respiratory: no respiratory distress, no rales or rhonchi, clear to auscultation Gastrointestinal: soft, non-tender abdomen Skin: warm Psychiatric: interacting appropriately, not anxious, not encephalopathic, thought process linear ICD10 Worksheet Patient Problems: Problems Problem Status Onset Intractable pain Acute Mass of right thigh Acute
[2018-08-02] MEDS: ACETAMINOPHEN 500 MG TAB PO SCH ×3 (03:19→18:09)
[2018-08-02] MEDS: LIDOCAINE 4%/MENTHOL 1% PATCH TD SCH ×2 (05:26→18:10)
[2018-08-02] MEDS: PATCH REMOVAL 1 EA PATCH TD SCH ×2 (05:26→18:12)
[2018-08-02] MEDS: METHOCARBAMOL 500 MG TAB PO SCH ×4 (05:27→20:57)
[2018-08-02] MEDS: SENNOSIDES/DOCUSATE SODIUM TAB PO SCH ×2 (09:03→20:58)
[2018-08-02] MEDS: morphINE SR 15 MG TAB PO SCH ×2 (09:04→20:58)
[2018-08-02] MEDS: PANTOPRAZOLE SODIUM 40 MG TAB PO SCH (09:04)
[2018-08-02] MEDS: MAGNESIUM HYDROXIDE 30 ML UDCUP PO SCH (09:04)
[2018-08-02] MEDS: ENOXAPARIN 40 MG/0.4 ML SYR SC SCH (09:04)
--- NOTE | 2018-08-02 12:24 | PDCONSULT ---
Optimization Analyst Note: PALLIATIVE CARE Patient seen briefly today to discuss Palliative Care consultation as requested by hospitalist service. Patient and her Pablo present and familiar with Palliative Care. They would like to meet tomorrow morning at 09:30 for full consult. Informational visit only, so no billing entered. Jef Flores MD Palliative and Hospice Medicine
--- NOTE | 2018-08-02 12:26 | ASMTCMCOM ---
CM Note CM Note Notes: Cart reviewed. Met with patient this am to discuss additional supportive care at home to help with pain management and meeting the patient's needs when they arise. Patient is a 62 year old female admitted with a necrotic thigh muscle mass that crated severe pain. She is an oncology patient with metastatic disease to her spine. Currently undergoing chemotherapy with oncologist Tayo Phelps. She tells me she would welcome help with managing pain control issues as it upsets her when she has episodes of uncontrolled pain. She lives with her who is wheelchair bound and they have a live in helper for systems administration analyst. CM to request [employer]. Per therapies no needs at this time, CM available should needs arise. Plan: Dc to home with outpatient palliative care. Date Signed: 08/02/2018 12:26 PM Electronically Signed By:Teagan Black RN
--- NOTE | 2018-08-02 13:48 | SOAPPROG ---
SOAP Progress Note Assessment/Plan: Assessment: 1. Breast cancer, ER+, metastatic 2. R thigh myositis, possibly due to gemcitbine Pain improving. Plan: - d/c gemcitabine, in the event that is the inciting cause - supportive care (pain meds, etc) - pt will need to discuss next line of Rx for her breast cancer w/ Dr. Phelps 08/02/18 13:45 Subjective: leg feeling a bit better. Objective: exam: thin, NAD firm area on anterior aspect of R thigh. no erythema or induration. Vital Signs Temp Pulse Resp BP Pulse Ox 36.6 C 77 16 91/63 L 96 08/02/18 11:13 08/02/18 11:13 08/02/18 11:13 08/02/18 11:13 08/02/18 11:13 Laboratory Results 08/02/18 04:38 08/02/18 04:38 08/01/18 08/02/18 08/03/18 05:59 05:59 05:59 Intake Total 630 1879 Output Total 500 Balance 130 1879 PT 12.6 sec 07/31/18 09:39 INR 1.1 07/31/18 09:39 ICD10 Worksheet Patient Problems: Problems Problem Status Onset Intractable pain Acute Mass of right thigh Acute
[2018-08-02] MEDS: HYDROmorphONE/DILAUDID 6 MG/30 ML PCA IV PRN (14:29)
--- NOTE | 2018-08-02 18:02 | HOSPPROG ---
Hospitalist Progress Note Assessment/Plan: Painful R thigh mass- etiology thought to be related to chemotherapy. final pathology pending, but necrosis on biopsy. currently controlling pain with DIRECTOR OF CURRICULUM AND INSTRUCTION, which is for the most part effective. will determine morphine equivalents in am in an attempt to adjust PO pain medications. Dr. Sharif and Noah have both evaluated patient and have reviewed the plan. chart reviewed and case discussed with palliative care Metastatic Br Ca- with bone mets. Palliative care consulted and case discussed with Dr. Sharif and Noah. formal palliative eval pending. Transaminitis- etiology uncertain. monitor LFTs for now, repeat in am. If worsening will check US abdomen to evaluate further. Stomach pain- PPi and GI cocktail. Anemia- slowly downtrending H/H. Low reticulocyte index suggests this is secondary to malignancy or chemo. no evidence of bleed, if H/H drops to 7/21 will transfuse. FULL CODE DVT prophy- lovenox PCP Dr Jain DISPO- > 2 mdnts because of severity of pain/DIRECTOR OF CURRICULUM AND INSTRUCTION, ongoing evaluation of leg mass /possible surgery if unable to tolerate pain or if pain worsens/changes Objective: Vital Signs Temp Pulse Resp BP Pulse Ox 37.1 C 85 16 110/64 94 08/02/18 14:58 08/02/18 14:58 08/02/18 14:58 08/02/18 14:58 08/02/18 14:58 Laboratory Results 08/02/18 04:38 08/02/18 04:38 08/01/18 08/02/18 08/03/18 05:59 05:59 05:59 Intake Total 630 1879 50 Output Total 500 Balance 130 1879 50 PT 12.6 sec 07/31/18 09:39 INR 1.1 07/31/18 09:39 - Time Spent With Patient Time Spent with Patient: greater than 35 minutes Time Spent with Patient: Greater than 35 minutes spent on this patients care, greater than 50% of time spent counseling, educating, and coordinating care regarding the above mentioned plan. - Physical Exam Constitutional: no apparent distress, appears nourished, not in pain Eyes: PERRL, anicteric sclera, EOMI Ears, Nose, Mouth, Throat: moist mucous membranes, hearing normal, ears appear normal, no oral mucosal ulcers Cardiovascular: regular rate and rhythym, no murmur, rub, or gallop Respiratory: no respiratory distress, no rales or rhonchi, clear to auscultation Gastrointestinal: normoactive bowel sounds, soft, non-tender abdomen, no palpable masses Genitourinary: no bladder fullness, no bladder tenderness, no renal bruits Skin: no rashes or abrasions, no fluctuance, no induration Musculoskeletal: other (right upper thigh with warmth and swelling approximately 20cm area of induration) Neurologic: AAOx3, sensation intact bilaterally Psychiatric: interacting appropriately, not anxious, not encephalopathic, thought process linear Lymph, Heme, Immunologic: no cervical LAD, no supraclavicular LAD ICD10 Worksheet Patient Problems: Problems Problem Status Onset Intractable pain Acute Mass of right thigh Acute
[2018-08-03] MEDS: ACETAMINOPHEN 500 MG TAB PO SCH ×3 (02:44→17:58)
[2018-08-03 05:07] LABS: PLATELET COUNT 151 10^3/uL (150-400)
[2018-08-03] MEDS: METHOCARBAMOL 500 MG TAB PO SCH ×4 (05:32→21:29)
[2018-08-03] MEDS: PATCH REMOVAL 1 EA PATCH TD SCH ×2 (05:33→18:13)
[2018-08-03] MEDS: LIDOCAINE 4%/MENTHOL 1% PATCH TD SCH ×2 (05:34→17:58)
[2018-08-03] MEDS: HYDROmorphONE/DILAUDID 6 MG/30 ML PCA IV PRN (08:22)
[2018-08-03] MEDS: MAGNESIUM HYDROXIDE 30 ML UDCUP PO SCH (08:33)
[2018-08-03] MEDS: SENNOSIDES/DOCUSATE SODIUM TAB PO SCH ×2 (08:33→21:30)
[2018-08-03] MEDS: PANTOPRAZOLE SODIUM 40 MG TAB PO SCH (08:33)
[2018-08-03] MEDS: morphINE SR 15 MG TAB PO SCH ×2 (08:33→21:29)
[2018-08-03] MEDS: HYDROmorphONE/DILAUDID 1 MG/ML INJ IVP PRN (10:29)
--- NOTE | 2018-08-03 10:38 | SOAPPROG ---
SOKRISTEN Progress Note Assessment/Plan: Assessment: 1. Breast cancer, ER+, metastatic 2. R thigh myositis, possibly due to gemcitbine stable. Plan: - d/c gemcitabine, in the event that is the inciting cause - supportive care (pain meds, etc) - transfuse RBCs today - likely effect of chemo - pt would like to discuss additional treatment- will defer to dr. dunne in the outpatient setting. 08/02/18 13:45 08/03/18 10:37 Subjective: pain about the same. Objective: exam unchanged Vital Signs Temp Pulse Resp BP Pulse Ox 36.8 C 83 16 111/63 97 08/03/18 07:25 08/03/18 07:25 08/03/18 07:25 08/03/18 07:25 08/03/18 07:25 Laboratory Results 08/03/18 04:34 08/03/18 04:34 08/02/18 08/03/18 08/04/18 05:59 05:59 05:59 Intake Total 1879 309 500 Balance 1879 309 500 PT 12.6 sec 07/31/18 09:39 INR 1.1 07/31/18 09:39 ICD10 Worksheet Patient Problems: Problems Problem Status Onset Intractable pain Acute Mass of right thigh Acute
[2018-08-03] MEDS: DEXAMETHASONE 2 MG TAB PO SCH (14:32)
--- NOTE | 2018-08-03 16:05 | HOSPPROG ---
Hospitalist Progress Note Assessment/Plan: 62yo F with metastatic breast cancer here with acute right thigh pain related to mass. 1. Acute right thigh pain: Related to below. 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 Plan to adjust PO doses based on IV needs tomorrow - Start dexamethasone 2mg today, increase to 4mg tomorrow if tolerating 2. Right thigh myonecrosis/myositis: Biopsied 07/[address] with path showing ischemia and necrotic muscle. ? due to chemo but overall unclear etiology. Antiphospholipid abs negative. Not surgical candidate. No pathologic fracture on MRI. - Stopped gemcitabine, supportive care as above 3. Metastatic breast cancer: Extensive bony mets. - Palliative care (Dr Flores) evaluated today. I discussed her care with him 4. Anemia: Slow down-trend, likely r/t chemo. No e/o bleed. - S/p 1u PRBC transfusion today with good response, monitor daily 5. Leukopenia: Due to cancer/chemo. Not neutropenic but given down-trend, will monitor daily. 6. Transaminitis: Uncertain etiology, query chemo related. Down-trending. Monitor. VTE ppx: LMWH Code: full Dispo: Remain inpatient for pain control Subjective: Right thigh pain bad this AM, better this afternoon. Also having some band-like pressure around upper abdomen. Has had before. Not painful. Not spasm. Objective: Vital Signs Temp Pulse Resp BP Pulse Ox 36.9 C 84 16 124/73 H 94 08/03/18 15:54 08/03/18 15:54 08/03/18 15:54 08/03/18 15:54 08/03/18 15:54 Laboratory Results 08/03/18 12:32 08/03/18 04:34 08/02/18 08/03/18 08/04/18 05:59 05:59 05:59 Intake Total 1879 309 500 Balance 1879 309 500 PT 12.6 sec 07/31/18 09:39 INR 1.1 07/31/18 09:39 - Physical Exam Constitutional: no apparent distress, appears nourished, not in pain Eyes: PERRL, anicteric sclera, EOMI Ears, Nose, Mouth, Throat: moist mucous membranes, hearing normal, ears appear normal, no oral mucosal ulcers Cardiovascular: regular rate and rhythym, no murmur, rub, or gallop, edema (RLE) Respiratory: no respiratory distress, no rales or rhonchi, clear to auscultation Gastrointestinal: normoactive bowel sounds, soft, non-tender abdomen, no palpable masses Genitourinary: no bladder fullness, no bladder tenderness, no renal bruits Skin: no rashes or abrasions, no fluctuance, no induration Musculoskeletal: full muscle strength, no muscle tenderness, normal joint ROM Neurologic: AAOx3, sensation intact bilaterally Psychiatric: interacting appropriately, not anxious, not encephalopathic, thought process linear ICD10 Worksheet Patient Problems: Problems Problem Status Onset Intractable pain Acute Mass of right thigh Acute
--- NOTE | 2018-08-03 23:57 | GCON ---
PALLIATIVE CARE CONSULT DATE OF CONSULTATION: 08/03/2018 CONSULTATION REQUESTED BY: Hospitalist Service. REASON FOR CONSULTATION: To discuss goals of care and symptom management. HISTORY OF PRESENT ILLNESS: This is a 62-year-old female with history of metastatic breast cancer. Her cancer was first diagnosed in 2000. She underwent mastectomy in 2001, had what she describes as a 9-year disease-free interval, but then had recurrence in her spine. She has known spinal and pelvic metastasis with spinal hardware which was placed in 2011, also previously recognized was a right acetabular fracture. The patient was, until recently, being treated with gemcitabine, but now has presented with a necrotic mass in her right thigh. It is unclear if this related to gemcitabine (rare case reports exist); however, it is being held at this point just in case. She is currently admitted primarily for pain control, as discussed in detail below. I met with the patient and her in her room today. She was experiencing some discomfort, and about half way through our visit received an additional clinician bolus of Dilaudid 0.4 mg, but was awake and alert throughout our discussion. The patient demonstrates a good understanding of her illness and was able to recount much of her history. She believes that her main purpose for being in the hospital is for pain control. She states that many of symptoms had started for days, if not perhaps weeks, prior to this admission, but they had crescendoed to the point that she finally could not manage this at home. On the prior to admission she, in fact, ran a senior support group. She has been attempting to stay active, however, her energy has been gradually decreasing over the last few weeks and she finds this more challenging. She notes that after she does "one thing" she needs to lie down and rest. She can sit for maybe an hour until pain limits and she has to either lie flat or get up and move, and now sleeping no more than 3 hours at a time primarily due to pain. This has been going on for months, and she describes appetite has been good, weight has been stable in roughly the 100-104 pound range, which has been her baseline for the last few years. Functionally, she is unable to use the stairs in her home, but they do have an elevator in the home, given the patient's 's needs. They will ambulate in the hallway in the hospital, yesterday with a walker. She has had no falls at home. The patient states that she tolerated all of her prior therapies reasonably well. She felt really no side effects from gemcitabine prior to this episode, although she is unsure if there was any benefit. Given her prior experience with chemotherapy, she is very interested in further lines of therapy, although she does express some conflict, stating that she questions at times if she should keep on fighting for the sake of her family, describing herself as the rock that holds many family issues together, or if she "gives herself a break and lets go." She feels that she has an important role in her mother's care, although while her mother does not live with her, she is suffering from advanced dementia and a lot of family decisions have necessitated. Her sister has been helping with care of their mother. Minimally, the patient feels pressure to be present at least until her mother passes. She also feels that she has some care responsibility for some of her 's needs that he would find uncomfortable being met by anyone else. Pain is primarily focused in her right hip and groin region. It radiates to her back, and the pressure in her sacrum is perhaps the worst. She describes her pain as a 6/10 currently. A 4-5 out of 10 for her is quite tolerable; however, she admits that she is in fear of pain amplifying again to get to the state where she was before she came to the hospital, and believes that this anxiety may be worsening her interpretation of her current symptoms. She describes and additional discomfort of a band-like tension around her costal margin. This has been present for perhaps only the last couple of weeks, is positional in nature. It does not cause shortness of breath per se, but she feels that she cannot take a deep breath due to this tension. She is quite clear this is not painful, and can often be relieved with simply a change in position, however the discomfort can be notable. We discussed additional care needs that the patient or her might be able to identify. The patient admits that while she has a very good support network, she is still dealing with a great deal emotionally, and in further discussion felt she might benefit from further support from a palliative care social sciences lecturer in the home setting. She does feel that this type of support is a matter of fit, and we agreed that a trial would be reasonable, and if she felt it was not helpful she could stop social work visits at any time. They have considerable support through their roman catholic as well as family and friends. Additionally, the patient's attends a men's group weekly and has used family counseling for several years now and finds this quite helpful, so he feels that additional support in the form of a specialist in palliative care could be beneficial for him as well. The patient feels it is difficult to explain the roller coaster of emotions that she is feeling to those who have not been through this process. When we discussed the prior traumatic event surrounding pain, she agrees that some of what she is experiencing is somewhat PTSD-like. She is at times shocked at her own reaction to her current symptoms. We did briefly touch on Advance Directives. The couple has done significant Advance Directive work with an district attorney prior, and they believe that they have medical durable power of district attorney, although the patient's is not entirely sure. I strongly encouraged them to complete an MDPOA to assure the patient's wishes would be carried forward. She has done perhaps a Five Wishes Form in the past (not entirely sure), and she does have a blank MOST Form at home but has not completed it. She appeared fatigued, and we agreed to complete a MOST Form again at another setting; however, she understands the importance of her Advance Directives, and I also underscored the importance of her family understanding the spirit of her wishes, given the potential complexity of decisions which could come in a medical setting. MEDICATION USE: In review of the patient's Dilaudid use (given through MANAGER MEMBERSHIP bolus only), she has used approximately 12.4 mg of IV Dilaudid in the last 24 hours, as well as 15 mg p.o. b.i.d. of MS Contin, scheduled Tylenol, and q.i.d. Robaxin. She additionally received a 0.4 mg clinician's bolus during our visit today, as mentioned above. Of note, the patient was given steroids a couple of weeks ago. Her describes the pain relief as "miraculous;" however, the patient felt this may have caused more swelling in her right leg. Her feels that given her pain relief, she was walking a fair bit more at the time and that may have likely been the cause for the swelling. No other swelling was reported at the time. PAST MEDICAL HISTORY: 1. Metastatic breast cancer, as described in HPI. 2. Thoracic fusion. CURRENT MEDICATIONS: 1. Tylenol 1000 mg p.o. q.8 hours. 2. Maalox 30 mg p.o. q.i.d. p.r.n. GI distress. 3. Dilaudid 0.2 to 0.4 mg IVP q.2 hours p.r.n. pain. 4. Dilaudid via MANAGER MEMBERSHIP 0.2 q. 15 minutes, demand only. 5. Levsin 0.25 mg p.o. q.i.d. p.r.n. GI distress. 6. Toradol 30 mg IVP q.6 hours p.r.n., last dose appears to have been given on 08/02 in the hide tanner. 7. Lactulose 20 g p.o. t.i.d. p.r.n. constipation. 8. Lidocaine 15 mL p.o. q.i.d. p.r.n. GI distress. 9. Lorazepam 0.5 mg p.o. q.4 hours p.r.n. anxiety. 10. Milk of magnesia 30 mL p.o. daily. 11. Robaxin 500 mg p.o. q.i.d. scheduled. 12. Lidocaine patches with 4% menthol daily scheduled. 13. Lidocaine menthol topical daily at 1800. 14. Morphine sulfate 15 mg p.o. b.i.d. scheduled. 15. Narcan p.r.n. respiratory depression. 16. Zofran 4 mg IVP q.4 hours p.r.n. nausea/vomiting. 17. Protonix 40 mg p.o. daily. 18. MiraLAX 17 g p.o. daily p.r.n. constipation. 19. Senokot-S 1-2 tabs p.o. b.i.d. scheduled. 20. Lovenox 40 mg scheduled daily (this appears to have been stopped on 2017). ALLERGIES: Listed as penicillin and honeydew. SOCIAL HISTORY: The patient was born in [place] and moved to the [facility] throughout elementary and middle school. Lived early adulthood in [facility] near the [place]. She has 2 children from prior relationships 10 years apart. One of her children has suffered from congenital deafness, the other suffered from lack of a corpus callosum and lived to 15 years of age. She and her have been together since 1995. 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 They belong to the [facility] in [place], which they both identify as an important spiritual and social support. The patient also feels that family members, her , and friends are good support as well. They have a tenant who lives in their downstairs apartment who helps with chores and errands, and they have additional kindergartners helper in the home. REVIEW OF SYSTEMS: A complete 10-point review of systems was otherwise negative beyond that mentioned in the HPI. PHYSICAL EXAMINATION: GENERAL: The patient is alert and oriented x4, looks her stated age. She is pale and thin, but not cachectic. Tearful at times appropriate to the conversation. VITAL SIGNS: Most recent vitals show a blood pressure of 112/70, heart rate of 87, respiratory rate of 15, satting 93% on room air, temp 36.8. HEENT: Pupils are equal and reactive to light and accommodation. Normal extraocular movements. Oropharynx shows no mucosal lesions. There is some mild temporal wasting. NECK: Supple, no palpable adenopathy or thyromegaly. CHEST: No indrawing or accessory muscle use, generally clear to auscultation with some scant crackles in the left base, which clear somewhat with coughing. CARDIOVASCULAR: Regular rate and rhythm without murmurs, rubs, or gallops. However, I noted a split S1. Peripheral pulses are +2 out of 3 at the radial and dorsalis pedis arteries. ABDOMEN: Bowel sounds are present, soft, nontender, and nondistended, without palpable or pulsatile masses. EXTREMITIES: No clubbing, cyanosis, or edema noted, with the exception of a palpable mass in the right thigh essentially overlying the femoral sheath. Size is approximately 6 x 8 cm, feels indurated, and freely mobile. DERM: Limited exam, as patient was not disrobed; however, no acute rashes or lesions appreciated. LABORATORY DATA: Most recent CBC shows a white blood cell count of 1.36, hemoglobin 6.9, hematocrit 21.8, and platelets of 151. Chemistry shows a sodium of 137, potassium 4.3, chloride 105, CO2 26, anion gap of 6, BUN of 12, creatinine 0.6 with a GFR greater than 60, glucose 95, calcium 8.0, which is slightly low. Total bili 0.4, AST 56, down from 92 on 08/02, alkaline phosphatase 248, down from 323, ALT is 71, down from 89, total protein is 4.7, with an albumin of 2 (both low per normal lab values). ASSESSMENT AND PLAN: This is a 62-year-old female with metastatic breast cancer that was first diagnosed in 2000, now with primarily bony metastasis. Issues are as follows: 1. Metastatic breast cancer. I was able to discuss with Dr. Phelps, the patient's primary oncologist. He feels that other lines of therapy are available to the patient and the patient appears interested in continuing once her current issues have stabilized or resolved, and other lines of therapy will be explored. 2. Extensive bony involvement. I reviewed available CTs and MRI with the radiologist. No pending fractures were appreciated, although there is a right acetabular fracture that was previously identified on a CT in June of this year. Notable sclerotic disease, including an old graft donor site which I presume was around the time of her spinal surgery. I do think, given the appearance of her bone, bone pain certainly may be a contributor here, as discussed below. 3. Pain. The patient's pain has been responding partially to her current Dilaudid dosing. She reported that the 0.4 dose did give her better relief than the 0.2, as would be expected, and does not feel oversedated. I suspect her opiate needs are not currently matched with her long-acting opiate dose; however, given her prior response to steroids, I would recommend a trial of steroids to see if this would help to relieve both the fascial stretch pain of her right thigh mass as well as bone pain from her sclerotic lesions. The starting dose for dexamethasone would be reasonable at 2 mg today, given that it is midday, and then avoid higher dosing right now due to the potential for sleep disturbance, but if well tolerated, could increase to 4 mg daily tomorrow and monitor. I suspect her leg swelling was an isolation that likely was in fact due to additional ambulation with a compressive mass in her right thigh. She did not experience swelling in other loci which would be supportive of this supposition. The patient's band-like pressure along her costal margin seems radicular in nature. It would appear most likely this is a result of complications from her prior surgery; however, it would be reasonable to have an evaluation by a spinal surgeon before proceeding with any further interventions. The radiologist suggested that an epidural injection could be helpful if we thought this was the etiology of her pain. I will defer this to Hospitalist Service at this time. 4. Advance Directives. The couple is unsure if they have a medical durable power of district attorney which has been completed. I have encouraged them to review this paperwork and establish a medical durable power of district attorney as soon as possible, and would continue further with this in the outpatient setting. Also , a MOST Form was not completed today as the patient wished to consider this further. We will discuss again at a future visit. Of note, in terms of the MDPOA, she did identify to me that she would wish her to be her decisionmaker should she be unable to make decisions for herself. Thank you for this consultation and allowing us to participate in the care of this patient. We will follow along with your. Patient can be followed in the outpatient setting by Home Palliative Care services. Time spent was 90 minutes, with greater than 50% of this time spent in patient and family counseling as well as coordination of care. The case was discussed with hospitalist and oncology services, as well as interventional radiology. /[id number]/MODL MTDD
[2018-08-04] MEDS: ACETAMINOPHEN 500 MG TAB PO SCH ×2 (03:21→08:59)
[2018-08-04] MEDS: METHOCARBAMOL 500 MG TAB PO SCH ×4 (05:08→20:25)
[2018-08-04] MEDS: PATCH REMOVAL 1 EA PATCH TD SCH ×2 (05:09→17:27)
[2018-08-04] MEDS: LIDOCAINE 4%/MENTHOL 1% PATCH TD SCH ×3 (05:10→17:28)
[2018-08-04] MEDS: MAGNESIUM HYDROXIDE 30 ML UDCUP PO SCH (08:59)
[2018-08-04] MEDS: morphINE SR 15 MG TAB PO SCH (09:01)
[2018-08-04] MEDS: PANTOPRAZOLE SODIUM 40 MG TAB PO SCH (09:01)
[2018-08-04] MEDS: SENNOSIDES/DOCUSATE SODIUM TAB PO SCH ×2 (09:01→20:25)
[2018-08-04] MEDS: DEXAMETHASONE 2 MG TAB PO SCH (09:01)
--- NOTE | 2018-08-04 11:44 | SOAPPROG ---
SOAP Progress Note Assessment/Plan: Assessment: 1. Breast cancer, ER+, metastatic 2. R thigh myositis, possibly due to gemcitbine stable. pain somewhat better with dex 2 mg daily. Plan: - d/c gemcitabine, in the event that is the inciting cause - supportive care (pain meds, etc) - pt would like to discuss additional treatment- will defer to dr. dunne in the outpatient setting. 08/02/18 13:45 08/03/18 10:37 08/04/18 11:43 Subjective: feeling somewhat better. Objective: Vital Signs Temp Pulse Resp BP Pulse Ox 36.8 C 79 16 87/71 L 96 08/04/18 08:46 08/04/18 08:46 08/04/18 08:46 08/04/18 08:46 08/04/18 08:46 Laboratory Results 08/04/18 04:39 08/04/18 04:39 08/03/18 08/04/18 08/05/18 05:59 05:59 05:59 Intake Total 309 1250 Balance 309 1250 PT 12.6 sec 07/31/18 09:39 INR 1.1 07/31/18 09:39 ICD10 Worksheet Patient Problems: Problems Problem Status Onset Intractable pain Acute Mass of right thigh Acute
[2018-08-04] MEDS ORDERED: DEXAMETHASONE 2 MG TAB PO SCH (13:10)
[2018-08-04] MEDS ORDERED: HYDROCODONE/APAP 10/325 TAB PO PRN (14:05)
[2018-08-04] MEDS: HYDROmorphONE/DILAUDID 6 MG/30 ML PCA IV PRN (14:51)
--- NOTE | 2018-08-04 16:01 | HOSPPROG ---
Hospitalist Progress Note Assessment/Plan: 62yo F with metastatic breast cancer here with acute right thigh pain related to mass. 1. Acute right thigh pain: Related to below. Opioid requirements down with addition of steroids, used about 8mg dilaudid on RETAIL LOSS PREVENTION INVESTIGATOR. - Increase MS contin from 15 to 30 BID - Stop RETAIL LOSS PREVENTION INVESTIGATOR after gets evening dose of MS contin - Will have IV dilaudid and PO hydrocodone available PRN if needed for breakthrough - Increase dexamethasone to 4mg daily 2. Right thigh myonecrosis/myositis: Biopsied 07/27 with [address] showing ischemia and necrotic muscle. ? due to chemo but overall unclear etiology. Antiphospholipid abs negative. Not surgical candidate. No pathologic fracture on MRI. - Stopped gemcitabine, supportive care as above 3. Metastatic breast cancer: Extensive bony mets. She follows with Dr Phelps, wants to discuss additional therapy options with him. - Palliative care (Dr Flores) evaluated. 4. Anemia: Slow down-trend, likely r/t chemo. No e/o bleed. - S/p 1u PRBC transfusion 08/03 with good response, monitor daily 5. Leukopenia: Due to cancer/chemo. Not neutropenic, will monitor daily. 6. Transaminitis: Uncertain etiology, query chemo related. Down-trending. Monitor. VTE ppx: LMWH Code: full Dispo: Remain inpatient for pain control, possibly discharge tomorrow. Will get set up with home health services PT/OT. Subjective: Pain better after steroids started. Used about 8mg dilaudid via RETAIL LOSS PREVENTION INVESTIGATOR yesterday. No other complaints. Objective: Vital Signs Temp Pulse Resp BP Pulse Ox 36.5 C 78 18 102/60 95 08/04/18 11:46 08/04/18 11:46 08/04/18 11:46 08/04/18 11:46 08/04/18 11:46 Laboratory Results 08/04/18 04:39 08/04/18 04:39 08/03/18 08/04/18 08/05/18 05:59 05:59 05:59 Intake Total 309 1250 Balance 309 1250 PT 12.6 sec 07/31/18 09:39 INR 1.1 07/31/18 09:39 - Physical Exam Constitutional: no apparent distress, appears nourished, not in pain, other ( thin) Eyes: PERRL, anicteric sclera, EOMI Ears, Nose, Mouth, Throat: moist mucous membranes, hearing normal, ears appear normal, no oral mucosal ulcers Cardiovascular: regular rate and rhythym, no murmur, rub, or gallop, edema ( lower extremity) Respiratory: no respiratory distress, no rales or rhonchi, clear to auscultation Gastrointestinal: normoactive bowel sounds, soft, non-tender abdomen, no palpable masses Genitourinary: no bladder fullness, no bladder tenderness, no renal bruits Skin: no rashes or abrasions, no fluctuance, no induration Musculoskeletal: other (right thigh induration but no overlying erythema) Neurologic: AAOx3, sensation intact bilaterally Psychiatric: interacting appropriately, not anxious, not encephalopathic, thought process linear ICD10 Worksheet Patient Problems: Problems Problem Status Onset Intractable pain Acute Mass of right thigh Acute
--- NOTE | 2018-08-04 16:50 | ASMTCMCOM ---
CM Note CM Note Notes: Patient plan of care reviewed. PT and OT recommend HHC. She is transitioning to oral pain medication. Likely to discharge with HHC tomorrow. [facility] referral made and they can accept her. Plan: DC to home with HHC when medically clear. Date Signed: 08/04/2018 04:49 PM Electronically Signed By:Teagan Black RN
[2018-08-04] MEDS: morphINE SR 30 MG TAB PO SCH (18:10)
[2018-08-04] MEDS ORDERED: traZODone 50 MG TAB PO PRN (20:09)
[2018-08-05] MEDS: LIDOCAINE 4%/MENTHOL 1% PATCH TD SCH (07:35)
[2018-08-05] MEDS: METHOCARBAMOL 500 MG TAB PO SCH ×2 (07:41→12:18)
[2018-08-05] MEDS: PATCH REMOVAL 1 EA PATCH TD SCH (07:42)
[2018-08-05] MEDS: morphINE SR 30 MG TAB PO SCH (08:32)
[2018-08-05] MEDS: PANTOPRAZOLE SODIUM 40 MG TAB PO SCH (08:32)
[2018-08-05] MEDS: SENNOSIDES/DOCUSATE SODIUM TAB PO SCH (08:32)
[2018-08-05] MEDS: MAGNESIUM HYDROXIDE 30 ML UDCUP PO SCH (08:33)
--- NOTE | 2018-08-05 09:41 | SOAPPROG ---
SOAP Progress Note Assessment/Plan: Assessment: 1. Breast cancer, ER+, metastatic 2. R thigh myositis, possibly due to gemcitbine stable. pain somewhat better with dex 2 mg daily. Plan: - d/c to home today - f/u with dr dunne in clinic next week to discuss next line of Rx. - continue low dose steroids for symptomatic relief. Subjective: feeling better. on PO pain meds. able to ambulate. Objective: exam: NAD unchanged Vital Signs Temp Pulse Resp BP Pulse Ox 36.7 C 66 18 111/66 96 08/05/18 08:19 08/05/18 08:19 08/05/18 08:19 08/05/18 08:19 08/05/18 08:19 Laboratory Results 08/05/18 05:09 08/05/18 05:09 08/04/18 08/05/18 08/06/18 05:59 05:59 05:59 Intake Total 1250 2150 Balance 1250 2150 PT 12.6 sec 07/31/18 09:39 INR 1.1 07/31/18 09:39 ICD10 Worksheet Patient Problems: Problems Problem Status Onset Intractable pain Acute Mass of right thigh Acute
[2018-08-05 11:46] VITALS: BP 111/67
--- NOTE | 2018-08-05 14:06 | PDDCSUM ---
Discharge Summary Discharge Summary: Date of Admission: 07/30/2018 Date of Discharge: 08/05/2018 Consultants: oncology, palliative care, general surgery Studies: 1. Right lower extremity MRI 2. TTE - normal Discharge Diagnoses: 1. Acute on chronic pain with opioid dependency 2. Right thigh myositis/myonecrosis 3. Metastatic breast cancer with extensive bony involvement 4. Pancytopenia 5. Transaminitis Brief Hospital Course: 62yo F with metastatic breast cancer here with acute right thigh pain related to mass. This mass was biopsed 07/27 (prior to admission) with pathology showing ischemia and necrotic muscle. An MRI on admission showed myonecrosis and myositis of thigh muscles; there was no pathologic fracture of underlying bone. The etiology of this is unclear but possibly related to her chemotherapy; her gemcitabine was discontinued. No source of thromboembolic disease on echocardiogram. Antiphospholipid antibodies were negative. Discussed with general surgery who did not feel surgery was indicated. Her pain was controlled with a dilaudid TIMBER SPRINKLER and palliative was consulted. Steroids were started with significant improvement and she was transitioned back to oral opioids. Her long- acting morphine was increased (doubled) and she was using norco PRN for breakthrough with good effect. She did receive 1 unit of PRBCs during this admission for anemia with good response. She did not have any bleeding and this was felt to be due to chemotherapy. Medications: Please refer to EMR for complete list. Prescriptions for the following were sent to her pharmacy 1. Dexamethasone 4mg PO QD #30 2. I refilled her hydrocodone/acetaminophen and methocarbamol 3. I increased her MS contin from 15mg BID to 30mg BID. I did NOT refill this as she had adequate supply of 15mg tablets Follow Up Plan: 1. To discuss ongoing therapy options for breast cancer with Dr Phelps 2. Continue to follow with palliative care Physical Exam: Vitals reviewed, afebrile. Alert and oriented, RRR without m/r/g , lungs clear, abdomen soft, mild induration of right thigh without overlying erythema or fluctuance.
--- NOTE | 2018-08-05 14:10 | ASMTLACE ---
LACE Length of stay for Answers: 4-6 days current admission Acuity / Level of Answers: Yes Care: Did the patient have an inpatient admission? Comorbidities - select Answers: Any tumor (including all that apply lymphoma or leukemia) Opioid dependence / Chronic pain # of Emergency department Answers: 1-2 visits in the last 6 months Score: 14 Date Signed: 08/05/2018 02:10 PM Electronically Signed By:Teagan Black RN
--- NOTE | 2018-08-05 14:17 | ASMTDCNOTE ---
Case Management Discharge Discharge Order Complete? Answers: Yes Patient to Obtain Answers: via Family Medications Transportation Arranged Answers: Family/Friends Faxed Final Orders Answers: Yes Agency/Facility Transfer Answers: Yes Report Printed & Faxed to Receiving Agency Family Notified Answers: Yes Discharge Comments Notes: Patient has been medically cleared for discharge. She will have [facility] at home for PT and OT. Date Signed: 08/05/2018 02:17 PM Electronically Signed By:Teagan Black RN
--- NOTE | 2018-08-05 14:27 | PDIAF ---
- Diagnosis Code Status: Full Code - Medication Management Discharge Medications: electronically signed and located in the Home Medication List. PICC Care - Routine: N/A - Orders Services needed: Home Care, Physical Therapy, Occupational Therapy Home Care Face to Face: I certify that this patient was under my care and that I had the required [id number] encounter meeting the encounter requirements on the discharge day. My findings support the fact that the patient is homebound as defined in Home Care Face to Face Continued: CMS Chapter 7 Medicare Benefits Manual 30.1.1 , The condition of the patient is such that there exists a normal inability to leave home and consequently, leaving home would require a considerable and taxing effort. Diet Recommendation: no restrictions on diet Additional Instructions: I have increased your MS contin from 15mg twice daily to 30mg twice daily. I refilled your hydrocodone/tylenol. I refilled your methocarbamol. I also sent a prescription for 4mg of dexamethasone (steroid) to the pharmacy. Please follow up with Dr Phelps. - Follow Up Care Current Providers and Referrals: Kenroy Jain MD [Primary Care Provider] - As per Instructions
== END 2018-08-05 15:24 | disposition home health service (06) | DRG 92 ==
LOC: F1N 15:36 → OBSVTOIN 15:44
PROVIDERS: ADMIT Internal Medicine; ATTEND Internal Medicine
PROC: 30233N1 Transfusion of Nonautologous Red Blood Cells into Peripheral Vein, Percutaneous Approach (ICD-10-PCS; principal; 2018-08-03)
DX: G72.0 Drug-induced myopathy (principal); T45.1X5A Adverse effect of antineoplastic and immunosuppressive drugs, initial encounter; G89.3 Neoplasm related pain (acute) (chronic); C79.51 Secondary malignant neoplasm of bone; D64.81 Anemia due to antineoplastic chemotherapy; Z85.3 Personal history of malignant neoplasm of breast; Z87.891 Personal history of nicotine dependence; Z17.1 Estrogen receptor negative status [ER-]; Z51.5 Encounter for palliative care; Z98.1 Arthrodesis status
CPT/HCPCS: 86147-90; 96374; 97116-GP; 97161-GP; 97165-GO; 97530-GO; 97530-GP; 97535-GO; A9585; G8978-GP-CJ; G8979-GP-CI; G8987-GO-CJ; G8988-GO-CH; J1170; J1650; J1885; J2270; J3360; P9016

== ENCOUNTER → 2018-08-19 | Outpatient (CLI) | payer OTHER | LOC: FIMAGING 16:00 | PROVIDERS: ATTEND Nurse Practitioner | DX: C79.51 Secondary malignant neoplasm of bone (principal); R10.2 Pelvic and perineal pain; M25.552 Pain in left hip; Z85.3 Personal history of malignant neoplasm of breast | CPT/HCPCS: 86300-90 ==

== ENCOUNTER → 2019-01-05 | Outpatient (CLI) | payer OTHER | LOC: EMCIMAGING 14:46 | PROVIDERS: ATTEND Internal Medicine Hematology & Oncology | DX: C50.812 Malignant neoplasm of overlapping sites of left female breast (principal); C50.919 Malignant neoplasm of unspecified site of unspecified female breast; C79.51 Secondary malignant neoplasm of bone | CPT/HCPCS: 72197-PN ==